=== PATIENT | male | born 1960 | race African-American/Black ===

== ENCOUNTER 2017-10-03 11:49 | Inpatient (IN) | payer OTHER ==
[2017-10-03 12:44] VITALS: BMI 23.0
[2017-10-03] MEDS ORDERED: MAG HYDROX/AL HYDROX/SIMETH 30 ML UNIT-DOSE CUP PO PRN (14:59)
[2017-10-03] MEDS ORDERED: P-EPHED 60MG/TRIPROLIDI 2.5MG TABLET PO PRN (14:59)
[2017-10-03] MEDS ORDERED: MAGNESIUM HYDROX 2400MG/30ML ORAL SUSPENSION 30 ML CUP PO PRN (14:59)
[2017-10-03] MEDS ORDERED: NICOTINE POLACRILEX 2 MG GUM BUC PRN (14:59)
[2017-10-03] MEDS ORDERED: MENTHOL/PHENOL 1 EACH UD MM PRN (14:59)
[2017-10-03] MEDS ORDERED: MAGNESIUM CITRATE 300 ML BOTTLE PO PRN (14:59)
[2017-10-03] MEDS ORDERED: IBUPROFEN 400 MG TABLET (FP) PO PRN (14:59)
[2017-10-03] MEDS ORDERED: guaiFENesin/D-METHORPHAN HB 10 ML UNIT-DOSE CUPS PO PRN (14:59)
[2017-10-03] MEDS ORDERED: LOPERAMIDE HCL 2 MG CAPSULE PO PRN (14:59)
[2017-10-03] MEDS ORDERED: ACETAMINOPHEN 325 MG TABLET (FP) PO PRN (14:59)
--- NOTE | 2017-10-03 14:59 | HP ---
COWS - Scale Resting Pulse: 1= [place] 81-100 Sweatin= Beads of Sweat on Face Restless Observation: 1= Difficult to Sit Still Pupil Size: 2= Moderately Dilated Bone or Joint Aches: 2= Severe Diffuse Aches Runny Nose/ Eye Tearin= Nasal Congestion GI Upset > 30mins: 0= None Tremor Observation: 2= Slight Tremor Visible Yawning Observation: 0= None Anxiety or Irritability: 2=Irritable/Anxious Goose Flesh Skin: 0=Smooth Skin COWS Score: 14 Admission ROS S - HPI Chief Complaint: tired of getting high Allergies/Adverse Reactions: Allergies Allergy/AdvReac Type Severity Reaction Status Date / Time No Known Allergies Allergy Verified 10/03/17 12:46 - Ebola screening Have you traveled outside of the country in the last 21 days: No Have you had contact with anyone from an Ebola affected area: No Have you been sick,other than usual withdrawal symptoms: No - Review of Systems Constitutional: Malaise EENT: reports: Nose Congestion Respiratory: reports: No Symptoms reported Cardiac: reports: No Symptoms Reported GI: reports: No Symptoms Reported : reports: No Symptoms Reported Musculoskeletal: reports: Back Pain, Joint Pain Integumentary: reports: No Symptoms Reported Neuro: reports: Headache Endocrine: reports: No Symptoms Reported Hematology: reports: No Symptoms Reported Psychiatric: reports: Anxious Patient History - Patient Medical History Hx Anemia: No Hx Asthma: No Hx Chronic Obstructive Pulmonary Disease (COPD): No Hx Cancer: No Hx Cardiac Disorders: No Hx Congestive Heart Failure: No Hx Hypertension: Yes (non compliant with meds.) Hx Hypercholesterolemia: No Hx Pacemaker: No HX Cerebrovascular Accident: No Hx Seizures: No Hx Dementia: No Hx Diabetes: No Hx Gastrointestinal Disorders: No Hx Liver Disease: No Hx Genitourinary Disorders: No Hx Sexually Transmitted Disorders: No Hx Renal Disease (ESRD): No Hx Thyroid Disease: No Hx Human Immunodeficiency Virus (HIV): No (last test 1 y ago) Hx Hepatitis C: No Hx Depression: No Hx Suicide Attempt: No Hx Bipolar Disorder: No Hx Schizophrenia: No - Patient Surgical History Past Surgical History: No - PPD History Documented Results: Positive w/o proof Implanted On Prior [facility] Admission?: No - Smoking Cessation Smoking history: Current every day smoker Have you smoked in the past 12 months: Yes Aproximately how many cigarettes per day: 3 Hx Chewing Tobacco Use: No Initiated information on smoking cessation: Yes 'Breaking Loose' booklet given: 10/03/17 - Substances Abused Heroin Route: Inhalation Frequency: Daily Amount used: 4 bags Age of first use: 19 Date of Last Use: 10/02/17 Marijuana/Hashish Route: Smoking Frequency: Daily Amount used: 2-3 joints Age of first use: 18 Date of Last Use: 10/02/17 Family Disease History - Family Disease History Family History: Denies Admission Physical Exam [facility] - Vital Signs Vital Signs: Vital Signs - 24 hr 10/03/17 12:35 Temperature 97.0 F L Pulse Rate 82 Respiratory 22 Rate Blood Pressure 178/115 - Physical General Appearance: Yes: Within Normal Limits HEENTM: Yes: EOMI Respiratory: Yes: Chest Non-Tender, Lungs Clear Neck: Yes: Within Normal Limits Cardiology: Yes: Within Normal Limits Abdominal: Yes: Within Normal Limits Genitourinary: Yes: Within Normal Limits Back: Yes: Within Normal Limits Musculoskeletal: Yes: full range of Motion, Gait Steady Extremities: Yes: Within Normal Limits Neurological: Yes: 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
[2017-10-03] MEDS ORDERED: METHADONE HCL 10 MG TABLET (FOR DETOX USE ONLY) PO ONE ×2 (15:31→23:00)
[2017-10-03] MEDS: diazePAM 5 MG TABLET PO PRN ×2 (17:03→22:20)
[2017-10-03] MEDS: NICOTINE 14 MG/24 HOURS TOPICAL PATCH TD SCH (17:03)
--- NOTE | 2017-10-03 17:16 | PN ---
[facility] Progress Note Note: received nurse call that the patient arrived the unit bp 185/100 recommend begin detox regimen as soon as possible
--- NOTE | 2017-10-03 20:03 | PN ---
[facility] Progress Note Note: received nurse call bp 153/102 one hour after detox regimen began continue detox regimen
--- NOTE | 2017-10-03 20:12 | PN ---
[facility] Progress Note Note: received nurse call patient has positive ppd needs chest x ray chest x ray as needed
[2017-10-03] MEDS: THIAMINE HCL 100 MG TABLET (FP) PO SCH (22:20)
[2017-10-03] MEDS: amLODIPine BESYLATE 10 MG TABLET (FP) PO SCH (22:20)
[2017-10-03] MEDS: HYDROCHLOROTHIAZIDE 25 MG TABLET (FP) PO SCH (22:20)
[2017-10-03] MEDS: LISINOPRIL 20 MG TABLET (FP) PO SCH (22:20)
[2017-10-04 02:47] LABS: URINE APPEARANCE CLEAR; URINE BILIRUBIN NEGATIVE (NEGATIVE); URINE BLOOD NEGATIVE (NEGATIVE); URINE COLOR LTYELLOW; URINE GLUCOSE (UA) NEGATIVE (NEGATIVE); URINE KETONE NEGATIVE (NEGATIVE); URINE LEUK ESTERASE NEGATIVE (NEGATIVE); URINE NITRITE NEGATIVE (NEGATIVE); URINE UROBILINOGEN NEGATIVE mg/dL (0.2-1.0)
[2017-10-04 02:54] LABS: URINE PROTEIN 1+ (NEGATIVE)
[2017-10-04 03:03] LABS: URINE RBC 1 /hpf (0-3); URINE WBC <1 /hpf (3-5)
[2017-10-04] MEDS ORDERED: cloNIDine HCL 0.1 MG TABLET PO ONE (06:01)
[2017-10-04] MEDS: diazePAM 5 MG TABLET PO PRN (06:07)
--- NOTE | 2017-10-04 09:20 | EKG ---
Test Reason : Blood Pressure : / mmHG Vent. Rate : 073 BPM Atrial Rate : 073 BPM P-R Int : 164 ms QRS Dur : 082 ms QT Int : 410 ms P-R-T Axes : 076 018 061 degrees QTc Int : 451 ms NORMAL SINUS RHYTHM POSSIBLE LEFT ATRIAL ENLARGEMENT LEFT VENTRICULAR HYPERTROPHY ABNORMAL ECG NO PREVIOUS ECGS AVAILABLE Confirmed by MYRIAM LEÓN MD ([id number]) on 10/04/2017 9:20:25 AM Referred By: Confirmed By:MYRIAM LEÓN MD
[2017-10-04] MEDS ORDERED: METHADONE HCL 10 MG TABLET (FOR DETOX USE ONLY) PO ONE (10:00)
[2017-10-04 10:09] LABS: MCH 29.1 pg (25.7-33.7); MCHC 32.6 g/dl (32.0-35.9); MEAN CELL VOLUME 89.2 fl (80-96); MEAN PLT VOLUME 9.8 fl (7.5-11.1); PLATELET COUNT 172 K/MM3 (134-434); RDW 14.9 % (11.9-15.9)
[2017-10-04 10:18] LABS: URINE LEUK ESTERASE Negative (NEGATIVE)
[2017-10-04 10:23] LABS: ALBUMIN 4.1 g/dl (3.4-5.0); ANION GAP 12 (8-16); BILIRUBIN,TOTAL 1.2 mg/dL (0.2-1.0); CALCIUM 9.3 mg/dL (8.5-10.1); CO2 24 mmol/L (21-32); CREATININE 1.2 mg/dL (0.7-1.3); GLUCOSE,RANDOM 126 mg/dL (74-106); SGPT/ALT 18 U/L (12-78); TOT PROT 8.7 g/dl (6.4-8.2)
[2017-10-04 10:24] LABS: ALK PHOS 92 U/L (45-117)
[2017-10-04 10:30] LABS: SGOT/AST 23 U/L (15-37)
[2017-10-04] MEDS: NICOTINE 14 MG/24 HOURS TOPICAL PATCH TD SCH (10:48)
[2017-10-04] MEDS: PRENATAL VITAMINS W/ FOLIC ACID TABLET (FP) PO SCH (10:48)
[2017-10-04] MEDS: LISINOPRIL 20 MG TABLET (FP) PO SCH (10:48)
[2017-10-04] MEDS: amLODIPine BESYLATE 10 MG TABLET (FP) PO SCH (10:48)
[2017-10-04] MEDS: HYDROCHLOROTHIAZIDE 25 MG TABLET (FP) PO SCH (10:48)
--- NOTE | 2017-10-04 11:04 | CONSULT ---
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 Substance Abuse History: Discussed in this session.Confirmed by patient.See details in current [facility] report : Smoking history: Current every day smoker. Have you smoked in the past 12 months: Yes. Aproximately how many cigarettes per day: 3. Hx Chewing Tobacco Use: No. Initiated information on smoking cessation: Yes. 'Breaking Loose' booklet given: 10/03/17. - Substances Abused. Heroin. Route: Inhalation. Frequency: Daily. Amount used: 4 bags. Age of first use: 19. Date of Last Use: 10/02/17. Marijuana/ Hashish. Route: Smoking. Frequency: Daily. Amount used: 2-3 joints. Age of first use: 18. Date of Last Use: 10/02/17 Medical History: Hypertension. Psychiatric History: Patient denies. Physical/Sexual Abuse/Trauma History: Patient denies. Additional Comment: Urine Drug Screen Results: THC-Marijuana, OPI-Opiates, TCA- Tricyclic Antidepressant, OXY-Oxycodone.Noted. Mental Status Exam - Mental Status Exam Alert and Oriented to: Time, Place, Person Cognitive Function: Good Patient Appearance: Well Groomed Mood: Hopeful, Euthymic Affect: Appropriate, Normal Range Patient Behavior: Fatigued, Cooperative Speech Pattern: Clear, Appropriate Voice Loudness: Normal Thought Process: Intact, Goal Oriented Thought Disorder: Not Present Hallucinations: Denies Suicidal Ideation: Denies Homicidal Ideation: Denies Insight/Judgement: Fair Sleep: Poorly, Difficulty falling asleep Appetite: Good Muscle strength/Tone: Normal Gait/Station: Normal Psychiatric Findings - Problem List ([place] 1, 2,3) (1) Heroin dependence Current Visit: Yes Status: Acute (2) Marihuana dependence Current Visit: Yes Status: Acute (3) Nicotine dependence Current Visit: Yes Status: Acute (4) Insomnia Current Visit: Yes Status: Acute - Initial Treatment Plan Initial Treatment Plan: Psychoeducation.Sleep hygiene.Detoxification.Ambien 10 mg po hs prn.Patient is made aware of risk of parasomnias.He agrees with this careplan.Observation.
--- NOTE | 2017-10-04 11:24 | PN ---
[facility] COWS - Scale Resting Pulse: 2= [place] 101-120 Sweatin= Chills/Flushing Restless Observation: 3= Extraneous Movement Pupil Size: 0= Normal to Room Light Bone or Joint Aches: 4=Acute Joint/Muscle Pain Runny Nose/ Eye Tearin= Nasal Congestion GI Upset > 30mins: 1= Stomach Cramp Tremor Observation of Outstretched Hands: 1= Tremor [place], Not Seen Yawning Observation: 1= 1-2x During Session Anxiety or Irritability: 2=Irritable/Anxious Goose Flesh Skin: 0=Smooth Skin COWS Score: 16 S Progress Note (SOAP) Subjective: PT C/O "TERRIBLE". ANXIETY,SWEATS,IRRITABILITY,BODY ACHES, INTERMITTENT SLEEP. Objective: 10/04/17 11:24 Vital Signs Temperature 97.5 F L 10/04/17 10:35 Pulse Rate 114 H 10/04/17 10:35 Respiratory Rate 18 10/04/17 10:35 Blood Pressure 136/86 10/04/17 10:35 O2 Sat by Pulse Oximetry (%) Laboratory Last Values WBC 6.0 K/mm3 (4.0-10.0) 10/04/17 06:00 RBC 5.69 M/mm3 (4.00-5.60) H 10/04/17 06:00 Hgb 16.5 GM/dL (11.7-16.9) 10/04/17 06:00 Hct 50.7 % (35.4-49) H 10/04/17 06:00 MCV 89.2 fl (80-96) 10/04/17 06:00 MCH 29.1 pg (25.7-33.7) 10/04/17 06:00 MCHC 32.6 g/dl (32.0-35.9) 10/04/17 06:00 RDW 14.9 % (11.9-15.9) 10/04/17 06:00 Plt Count 172 K/MM3 (134-434) 10/04/17 06:00 MPV 9.8 fl (7.5-11.1) 10/04/17 06:00 Sodium 138 mmol/L (136-145) 10/04/17 06:00 Potassium 4.4 mmol/L (3.5-5.1) 10/04/17 06:00 Chloride 102 mmol/L (98-107) 10/04/17 06:00 Carbon Dioxide 24 mmol/L (21-32) 10/04/17 06:00 Anion Gap 12 (8-16) 10/04/17 06:00 BUN 14 mg/dL (7-18) 10/04/17 06:00 Creatinine 1.2 mg/dL (0.7-1.3) 10/04/17 06:00 Creat Clearance w eGFR > 60 (>60) 10/04/17 06:00 Random Glucose 126 mg/dL (74-106) H 10/04/17 06:00 Calcium 9.3 mg/dL (8.5-10.1) 10/04/17 06:00 Total Bilirubin 1.2 mg/dL (0.2-1.0) H 10/04/17 06:00 AST 23 U/L (15-37) 10/04/17 06:00 ALT 18 U/L (12-78) 10/04/17 06:00 Alkaline Phosphatase 92 U/L (45-117) 10/04/17 06:00 Total Protein 8.7 g/dl (6.4-8.2) H 10/04/17 06:00 Albumin 4.1 g/dl (3.4-5.0) 10/04/17 06:00 Urine Color Ltyellow 10/03/17 23:15 Urine Appearance Clear 10/03/17 23:15 Urine pH 6.0 (5.0-8.0) 10/03/17 23:15 Ur Specific [place] 1.003 (1.001-1.035) 10/03/17 23:15 Urine Protein 1+ (NEGATIVE) H 10/03/17 23:15 Urine Glucose (UA) Negative (NEGATIVE) 10/03/17 23:15 Urine Ketones Negative (NEGATIVE) 10/03/17 23:15 Urine Blood Negative (NEGATIVE) 10/03/17 23:15 Urine Nitrite Negative (NEGATIVE) 10/03/17 23:15 Urine Bilirubin Negative (NEGATIVE) 10/03/17 23:15 Urine Urobilinogen Negative mg/dL (0.2-1.0) 10/03/17 23:15 Ur Leukocyte Esterase Negative (NEGATIVE) 10/03/17 23:15 Urine WBC (Auto) <1 /hpf (3-5) 10/03/17 23:15 Urine RBC (Auto) 1 /hpf (0-3) 10/03/17 23:15 RPR Titer Nonreactive (NONREACTIVE) 10/04/17 06:00 Assessment: 10/04/17 11:24 WITHDRAWAL SX Plan: CONTINUE DETOX
[2017-10-04] MEDS: ZOLPIDEM TARTRATE 10 MG TABLET (PARK CARE ONLY) PO PRN (22:48)
[2017-10-04] MEDS: THIAMINE HCL 100 MG TABLET (FP) PO SCH (22:48)
[2017-10-05] MEDS: diazePAM 5 MG TABLET PO PRN ×3 (05:22→22:12)
[2017-10-05] MEDS ORDERED: METHADONE HCL 5 MG TABLET (FOR DETOX USE ONLY) PO ONE (10:00)
[2017-10-05] MEDS: LISINOPRIL 20 MG TABLET (FP) PO SCH (10:03)
[2017-10-05] MEDS: amLODIPine BESYLATE 10 MG TABLET (FP) PO SCH (10:03)
[2017-10-05] MEDS: NICOTINE 14 MG/24 HOURS TOPICAL PATCH TD SCH (10:03)
[2017-10-05] MEDS: HYDROCHLOROTHIAZIDE 25 MG TABLET (FP) PO SCH (10:03)
[2017-10-05] MEDS: PRENATAL VITAMINS W/ FOLIC ACID TABLET (FP) PO SCH (10:03)
[2017-10-05] MEDS: AMMONIUM LACTATE 12% LOTION 225 GM BOTTLE TP SCH (13:39)
[2017-10-05] MEDS ORDERED: cloNIDine HCL 0.1 MG TABLET PO ONE (15:08)
--- NOTE | 2017-10-05 15:08 | PN ---
[facility] COWS - Scale Resting Pulse: 1= [place] 81-100 Sweatin= Chills/Flushing Restless Observation: 1= Difficult to Sit Still Pupil Size: 0= Normal to Room Light Bone or Joint Aches: 2= Severe Diffuse Aches Runny Nose/ Eye Tearin= None GI Upset > 30mins: 2= Nausea/Diarrhea Tremor Observation of Outstretched Hands: 2= Slight Tremor Visible Yawning Observation: 1= 1-2x During Session Anxiety or Irritability: 2=Irritable/Anxious Goose Flesh Skin: 0=Smooth Skin COWS Score: 12 BHS Progress Note (SOAP) Subjective: Diarrhea, Tremors, Sweating, Chills, Stomach Cramping. Objective: PT. A & O X 3, OBSERVED AMBULATING ON UNIT. NO ACUTE DISTRESS. 10/05/17 15:06 Vital Signs Temperature 99.1 F 10/05/17 13:53 Pulse Rate 98 H 10/05/17 13:53 Respiratory Rate 18 10/05/17 13:53 Blood Pressure 137/92 10/05/17 13:53 O2 Sat by Pulse Oximetry (%) Laboratory Tests 10/03/17 10/04/17 10/04/17 23:15 06:00 06:00 WBC 6.0 RBC 5.69 H Hgb 16.5 Hct 50.7 H MCV 89.2 MCH 29.1 MCHC 32.6 RDW 14.9 Plt Count 172 MPV 9.8 Sodium 138 Potassium 4.4 Chloride 102 Carbon Dioxide 24 Anion Gap 12 BUN 14 Creatinine 1.2 Creat Clearance w eGFR > 60 Random Glucose 126 H Calcium 9.3 Total Bilirubin 1.2 H AST 23 ALT 18 Alkaline Phosphatase 92 Total Protein 8.7 H Albumin 4.1 Urine Color Ltyellow Urine Appearance Clear Urine pH 6.0 Ur Specific [place] 1.003 Urine Protein 1+ H Urine Glucose (UA) Negative Urine Ketones Negative Urine Blood Negative Urine Nitrite Negative Urine Bilirubin Negative Urine Urobilinogen Negative Ur Leukocyte Esterase Negative Urine WBC (Auto) <1 Urine RBC (Auto) 1 RPR Titer 10/04/17 06:00 WBC RBC Hgb Hct MCV MCH MCHC RDW Plt Count MPV Sodium Potassium Chloride Carbon Dioxide Anion Gap BUN Creatinine Creat Clearance w eGFR Random Glucose Calcium Total Bilirubin AST ALT Alkaline Phosphatase Total Protein Albumin Urine Color Urine Appearance Urine pH Ur Specific [place] Urine Protein Urine Glucose (UA) Urine Ketones Urine Blood Urine Nitrite Urine Bilirubin Urine Urobilinogen Ur Leukocyte Esterase Urine WBC (Auto) Urine RBC (Auto) RPR Titer Nonreactive LABS NOTED. Assessment: 10/05/17 15:06 WITHDRAWAL SYMPTOMS. Plan: CONTINUE DETOX. CLONIDINE, 0.1 MG PO X 1 FOR DETOX SYMPTOMS AND FOR ELEVATED BP. PRN FLEXERIL FOR BODY ACHES / MUSCLE SPASMS. INCREASE DAILY PO FLUID INTAKE.
[2017-10-05] MEDS: CYCLOBENZAPRINE HCL 10 MG TABLET (FP) PO PRN (22:12)
[2017-10-05] MEDS: ZOLPIDEM TARTRATE 10 MG TABLET (PARK CARE ONLY) PO PRN (22:12)
[2017-10-05] MEDS: THIAMINE HCL 100 MG TABLET (FP) PO SCH (22:12)
[2017-10-06] MEDS ORDERED: METHADONE HCL 5 MG TABLET (FOR DETOX USE ONLY) PO ONE (10:00)
[2017-10-06] MEDS: amLODIPine BESYLATE 10 MG TABLET (FP) PO SCH (10:07)
[2017-10-06] MEDS: PRENATAL VITAMINS W/ FOLIC ACID TABLET (FP) PO SCH (10:07)
[2017-10-06] MEDS: HYDROCHLOROTHIAZIDE 25 MG TABLET (FP) PO SCH (10:07)
[2017-10-06] MEDS: LISINOPRIL 20 MG TABLET (FP) PO SCH (10:07)
[2017-10-06] MEDS: AMMONIUM LACTATE 12% LOTION 225 GM BOTTLE TP SCH (10:08)
[2017-10-06] MEDS: NICOTINE 14 MG/24 HOURS TOPICAL PATCH TD SCH (10:08)
--- NOTE | 2017-10-06 13:05 | PN ---
[facility]HS Progress Note (SOAP) Subjective: Chills, sweating, interrupted sleep Objective: 10/06/17 12:58 Last Vital Signs Temp Pulse Resp BP Pulse Ox 97.3 F L 91 H 18 125/84 10/06/17 09:26 10/06/17 09:26 10/06/17 09:26 10/06/17 09:26 Laboratory Tests 10/03/17 10/04/17 10/04/17 23:15 06:00 06:00 WBC 6.0 RBC 5.69 H Hgb 16.5 Hct 50.7 H MCV 89.2 MCH 29.1 MCHC 32.6 RDW 14.9 Plt Count 172 MPV 9.8 Sodium 138 Potassium 4.4 Chloride 102 Carbon Dioxide 24 Anion Gap 12 BUN 14 Creatinine 1.2 Creat Clearance w eGFR > 60 Random Glucose 126 H Calcium 9.3 Total Bilirubin 1.2 H AST 23 ALT 18 Alkaline Phosphatase 92 Total Protein 8.7 H Albumin 4.1 Urine Color Ltyellow Urine Appearance Clear Urine pH 6.0 Ur Specific [place] 1.003 Urine Protein 1+ H Urine Glucose (UA) Negative Urine Ketones Negative Urine Blood Negative Urine Nitrite Negative Urine Bilirubin Negative Urine Urobilinogen Negative Ur Leukocyte Esterase Negative Urine WBC (Auto) <1 Urine RBC (Auto) 1 RPR Titer 10/04/17 06:00 WBC RBC Hgb Hct MCV MCH MCHC RDW Plt Count MPV Sodium Potassium Chloride Carbon Dioxide Anion Gap BUN Creatinine Creat Clearance w eGFR Random Glucose Calcium Total Bilirubin AST ALT Alkaline Phosphatase Total Protein Albumin Urine Color Urine Appearance Urine pH Ur Specific [place] Urine Protein Urine Glucose (UA) Urine Ketones Urine Blood Urine Nitrite Urine Bilirubin Urine Urobilinogen Ur Leukocyte Esterase Urine WBC (Auto) Urine RBC (Auto) RPR Titer Nonreactive Labs noted: serum glucose 126; UA: 1+ protein Assessment: 10/06/17 12:59 Withdrawal symptoms Noted with hyperglycemia and proteinuria Plan: Continue detox Hyperglycemia: rule out dm by repeating fasting glucose, send HbA1c, finger stick glucose ac meal, insulin sliding scale with coverage, change ensure to glucerna, start oral antidiabetic medication if warranted Proteinuria: encouraged to drink lots of water, repeat UA
[2017-10-06] MEDS: CYCLOBENZAPRINE HCL 10 MG TABLET (FP) PO PRN ×2 (13:25→22:09)
[2017-10-06 16:06] LABS: URINE APPEARANCE CLEAR; URINE BILIRUBIN NEGATIVE (NEGATIVE); URINE BLOOD NEGATIVE (NEGATIVE); URINE COLOR LTYELLOW; URINE GLUCOSE (UA) NEGATIVE (NEGATIVE); URINE KETONE NEGATIVE (NEGATIVE); URINE LEUK ESTERASE NEGATIVE (NEGATIVE); URINE NITRITE NEGATIVE (NEGATIVE); URINE PROTEIN NEGATIVE (NEGATIVE); URINE UROBILINOGEN NEGATIVE mg/dL (0.2-1.0)
[2017-10-06] MEDS: INSULIN SLIDING SCALE (NOVOLOG) 1 VIAL SQ SCH (16:53)
[2017-10-06 20:12] LABS: URINE LEUK ESTERASE Negative (NEGATIVE)
[2017-10-06] MEDS: ZOLPIDEM TARTRATE 10 MG TABLET (PARK CARE ONLY) PO PRN (22:08)
[2017-10-06] MEDS: THIAMINE HCL 100 MG TABLET (FP) PO SCH (22:08)
[2017-10-07] MEDS: CYCLOBENZAPRINE HCL 10 MG TABLET (FP) PO PRN ×2 (05:35→14:23)
[2017-10-07] MEDS: INSULIN SLIDING SCALE (NOVOLOG) 1 VIAL SQ SCH ×3 (06:19→16:28)
[2017-10-07] MEDS ORDERED: METHADONE HCL 10 MG TABLET (FOR DETOX USE ONLY) PO ONE (10:00)
[2017-10-07] MEDS: LISINOPRIL 20 MG TABLET (FP) PO SCH (10:11)
[2017-10-07] MEDS: HYDROCHLOROTHIAZIDE 25 MG TABLET (FP) PO SCH (10:11)
[2017-10-07] MEDS: PRENATAL VITAMINS W/ FOLIC ACID TABLET (FP) PO SCH (10:11)
[2017-10-07] MEDS: NICOTINE 14 MG/24 HOURS TOPICAL PATCH TD SCH (10:12)
[2017-10-07] MEDS: AMMONIUM LACTATE 12% LOTION 225 GM BOTTLE TP SCH (10:12)
[2017-10-07] MEDS: amLODIPine BESYLATE 10 MG TABLET (FP) PO SCH (10:12)
--- NOTE | 2017-10-07 11:40 | PN ---
[facility] Progress Note (SOAP) Subjective: ANXIETY,SWEATS,CHILLS,CHRONIC LOWER BACK PAIN. Objective: 10/07/17 11:39 Vital Signs Temperature 97.2 F L 10/07/17 09:17 Pulse Rate 94 H 10/07/17 09:17 Respiratory Rate 18 10/07/17 09:17 Blood Pressure 134/92 10/07/17 09:17 O2 Sat by Pulse Oximetry (%) Laboratory Last Values WBC 6.0 K/mm3 (4.0-10.0) 10/04/17 06:00 RBC 5.69 M/mm3 (4.00-5.60) H 10/04/17 06:00 Hgb 16.5 GM/dL (11.7-16.9) 10/04/17 06:00 Hct 50.7 % (35.4-49) H 10/04/17 06:00 MCV 89.2 fl (80-96) 10/04/17 06:00 MCH 29.1 pg (25.7-33.7) 10/04/17 06:00 MCHC 32.6 g/dl (32.0-35.9) 10/04/17 06:00 RDW 14.9 % (11.9-15.9) 10/04/17 06:00 Plt Count 172 K/MM3 (134-434) 10/04/17 06:00 MPV 9.8 fl (7.5-11.1) 10/04/17 06:00 Sodium 138 mmol/L (136-145) 10/04/17 06:00 Potassium 4.4 mmol/L (3.5-5.1) 10/04/17 06:00 Chloride 102 mmol/L (98-107) 10/04/17 06:00 Carbon Dioxide 24 mmol/L (21-32) 10/04/17 06:00 Anion Gap 12 (8-16) 10/04/17 06:00 BUN 14 mg/dL (7-18) 10/04/17 06:00 Creatinine 1.2 mg/dL (0.7-1.3) 10/04/17 06:00 Creat Clearance w eGFR > 60 (>60) 10/04/17 06:00 POC Glucometer 81 UNITS (80-120) 10/07/17 05:34 Random Glucose 126 mg/dL (74-106) H 10/04/17 06:00 Fasting Glucose 81 mg/dL (70-105) 10/07/17 07:00 Hemoglobin A1c % 5.7 % (4.8-6.0) 10/07/17 07:00 Calcium 9.3 mg/dL (8.5-10.1) 10/04/17 06:00 Total Bilirubin 1.2 mg/dL (0.2-1.0) H 10/04/17 06:00 AST 23 U/L (15-37) 10/04/17 06:00 ALT 18 U/L (12-78) 10/04/17 06:00 Alkaline Phosphatase 92 U/L (45-117) 10/04/17 06:00 Total Protein 8.7 g/dl (6.4-8.2) H 10/04/17 06:00 Albumin 4.1 g/dl (3.4-5.0) 10/04/17 06:00 Urine Color Ltyellow 10/06/17 13:30 Urine Appearance Clear 10/06/17 13:30 Urine pH 6.0 (5.0-8.0) 10/06/17 13:30 Ur Specific [place] 1.006 (1.001-1.035) 10/06/17 13:30 Urine Protein Negative (NEGATIVE) 10/06/17 13:30 Urine Glucose (UA) Negative (NEGATIVE) 10/06/17 13:30 Urine Ketones Negative (NEGATIVE) 10/06/17 13:30 Urine Blood Negative (NEGATIVE) 10/06/17 13:30 Urine Nitrite Negative (NEGATIVE) 10/06/17 13:30 Urine Bilirubin Negative (NEGATIVE) 10/06/17 13:30 Urine Urobilinogen Negative mg/dL (0.2-1.0) 10/06/17 13:30 Ur Leukocyte Esterase Negative (NEGATIVE) 10/06/17 13:30 Urine WBC (Auto) <1 /hpf (3-5) 10/03/17 23:15 Urine RBC (Auto) 1 /hpf (0-3) 10/03/17 23:15 RPR Titer Nonreactive (NONREACTIVE) 10/04/17 06:00 Assessment: 10/07/17 11:40 WITHDRAWAL SX Plan: CONTINUE DETOX
[2017-10-07] MEDS: THIAMINE HCL 100 MG TABLET (FP) PO SCH (22:30)
[2017-10-08] MEDS ORDERED: METHADONE HCL 5 MG TABLET (FOR DETOX USE ONLY) PO ONE (06:00)
[2017-10-08] MEDS: INSULIN SLIDING SCALE (NOVOLOG) 1 VIAL SQ SCH (06:31)
[2017-10-08 09:04] VITALS: BP 135/91; PULSE 101; TEMP 98.5
--- NOTE | 2017-10-08 10:06 | DS ---
[facility] Detox Discharge Summary Admission Date: 10/03/17 Discharge Date: 10/08/17 - History Present History: Opioid Dependence Additional Comments: DETOX COMPLETED.ALERT O X 3. NAD. PT REPORTS HE IS GOING BACK TO [facility] WHERE HE CAME FROM AND RECIEVES MEDICAL AND OTHER SERVICES. - Physical Exam Results Vital Signs: Vital Signs Temperature 98.5 F 10/08/17 09:03 Pulse Rate 101 H 10/08/17 09:03 Respiratory Rate 20 10/08/17 09:03 Blood Pressure 135/91 10/08/17 09:03 O2 Sat by Pulse Oximetry (%) Pertinent Admission Physical Exam Findings: WITHDRAWAL SX Laboratory Last Values WBC 6.0 K/mm3 (4.0-10.0) 10/04/17 06:00 RBC 5.69 M/mm3 (4.00-5.60) H 10/04/17 06:00 Hgb 16.5 GM/dL (11.7-16.9) 10/04/17 06:00 Hct 50.7 % (35.4-49) H 10/04/17 06:00 MCV 89.2 fl (80-96) 10/04/17 06:00 MCH 29.1 pg (25.7-33.7) 10/04/17 06:00 MCHC 32.6 g/dl (32.0-35.9) 10/04/17 06:00 RDW 14.9 % (11.9-15.9) 10/04/17 06:00 Plt Count 172 K/MM3 (134-434) 10/04/17 06:00 MPV 9.8 fl (7.5-11.1) 10/04/17 06:00 Sodium 138 mmol/L (136-145) 10/04/17 06:00 Potassium 4.4 mmol/L (3.5-5.1) 10/04/17 06:00 Chloride 102 mmol/L (98-107) 10/04/17 06:00 Carbon Dioxide 24 mmol/L (21-32) 10/04/17 06:00 Anion Gap 12 (8-16) 10/04/17 06:00 BUN 14 mg/dL (7-18) 10/04/17 06:00 Creatinine 1.2 mg/dL (0.7-1.3) 10/04/17 06:00 Creat Clearance w eGFR > 60 (>60) 10/04/17 06:00 POC Glucometer 101 UNITS (80-120) 10/07/17 16:20 Random Glucose 126 mg/dL (74-106) H 10/04/17 06:00 Fasting Glucose 81 mg/dL (70-105) 10/07/17 07:00 Hemoglobin A1c % 5.7 % (4.8-6.0) 10/07/17 07:00 Calcium 9.3 mg/dL (8.5-10.1) 10/04/17 06:00 Total Bilirubin 1.2 mg/dL (0.2-1.0) H 10/04/17 06:00 AST 23 U/L (15-37) 10/04/17 06:00 ALT 18 U/L (12-78) 10/04/17 06:00 Alkaline Phosphatase 92 U/L (45-117) 10/04/17 06:00 Total Protein 8.7 g/dl (6.4-8.2) H 10/04/17 06:00 Albumin 4.1 g/dl (3.4-5.0) 10/04/17 06:00 Urine Color Ltyellow 10/06/17 13:30 Urine Appearance Clear 10/06/17 13:30 Urine pH 6.0 (5.0-8.0) 10/06/17 13:30 Ur Specific [place] 1.006 (1.001-1.035) 10/06/17 13:30 Urine Protein Negative (NEGATIVE) 10/06/17 13:30 Urine Glucose (UA) Negative (NEGATIVE) 10/06/17 13:30 Urine Ketones Negative (NEGATIVE) 10/06/17 13:30 Urine Blood Negative (NEGATIVE) 10/06/17 13:30 Urine Nitrite Negative (NEGATIVE) 10/06/17 13:30 Urine Bilirubin Negative (NEGATIVE) 10/06/17 13:30 Urine Urobilinogen Negative mg/dL (0.2-1.0) 10/06/17 13:30 Ur Leukocyte Esterase Negative (NEGATIVE) 10/06/17 13:30 Urine WBC (Auto) <1 /hpf (3-5) 10/03/17 23:15 Urine RBC (Auto) 1 /hpf (0-3) 10/03/17 23:15 RPR Titer Nonreactive (NONREACTIVE) 10/04/17 06:00 - Treatment Hospital Course: Detox Protocol Followed, Detoxed Safely, Responded well, Discharged Condition Good - Medication Discharge Medications: Ambulatory Orders Amlodipine Besylate [Norvasc -] 10 mg PO DAILY 10/03/17 Hydrochlorothiazide [Hctz -] 25 mg PO DAILY 10/03/17 Lisinopril [Prinivil] 20 mg PO DAILY 10/03/17 - Diagnosis (1) Nicotine dependence Status: Acute Qualifiers: Nicotine product type: cigarettes Substance use status: in withdrawal Qualified Code(s): F17.213 - Nicotine dependence, cigarettes, with withdrawal (2) Opiate dependence Status: Acute Qualifiers: Substance use status: in withdrawal Qualified Code(s): F11.23 - Opioid dependence with withdrawal (3) Hypertension Status: Chronic Qualifiers: Hypertension type: essential hypertension Qualified Code(s): I10 - Essential (primary) hypertension (4) Chronic lower back pain Status: Chronic Qualifiers: Back pain laterality: unspecified - AMA Did Patient Leave Against Medical Advice: No
== END 2017-10-08 09:20 | disposition home or self-care (01) | DRG 773 ==
LOC: YASAS 11:49 → Y3N 14:42
PROVIDERS: ADMIT Internal Medicine; ATTEND Internal Medicine
PROC: HZ2ZZZZ Detoxification Services for Substance Abuse Treatment (ICD-10-PCS; principal; 2017-10-03)
DX: F11.23 Opioid dependence with withdrawal (principal); F12.20 Cannabis dependence, uncomplicated; F17.213 Nicotine dependence, cigarettes, with withdrawal; I10 Essential (primary) hypertension; M54.5 Low back pain; G89.29 Other chronic pain; G47.00 Insomnia, unspecified; R73.9 Hyperglycemia, unspecified; R80.9 Proteinuria, unspecified; R76.11 Nonspecific reaction to tuberculin skin test without active tuberculosis; Z91.14 Patient's other noncompliance with medication regimen
CPT/HCPCS: 36415; 71020-TC; 80053; 81003; 81015; 82947; 83036; 85027; 86593; 93005; 93010

== ENCOUNTER 2017-10-29 13:11 | Inpatient (IN) | payer OTHER ==
[2017-10-29 14:21] VITALS: BMI 24.4
[2017-10-29] MEDS ORDERED: NICOTINE POLACRILEX 2 MG GUM BC PRN (16:07)
[2017-10-29] MEDS ORDERED: hydrOXYzine PAMOATE 50 MG CAPSULE (FP) PO PRN (16:07)
[2017-10-29] MEDS ORDERED: MAGNESIUM CITRATE 300 ML BOTTLE PO PRN (16:07)
[2017-10-29] MEDS ORDERED: MAGNESIUM HYDROX 2400MG/30ML ORAL SUSPENSION 30 ML CUP PO PRN (16:07)
[2017-10-29] MEDS ORDERED: MENTHOL/PHENOL 1 EACH UD MM PRN (16:07)
[2017-10-29] MEDS ORDERED: LOPERAMIDE HCL 2 MG CAPSULE PO PRN (16:07)
[2017-10-29] MEDS ORDERED: MAG HYDROX/AL HYDROX/SIMETH 30 ML UNIT-DOSE CUP PO PRN (16:07)
[2017-10-29] MEDS ORDERED: ACETAMINOPHEN 325 MG TABLET (FP) PO PRN (16:07)
[2017-10-29] MEDS ORDERED: P-EPHED 60MG/TRIPROLIDI 2.5MG TABLET PO PRN (16:07)
[2017-10-29] MEDS ORDERED: guaiFENesin/D-METHORPHAN HB 10 ML UNIT-DOSE CUPS PO PRN (16:07)
--- NOTE | 2017-10-29 16:07 | HP ---
COWS - Scale Resting Pulse: 1= [place] 81-100 Sweatin=Flushed/Facial Moisture Restless Observation: 1= Difficult to Sit Still Pupil Size: 0= Normal to Room Light Bone or Joint Aches: 2= Severe Diffuse Aches Runny Nose/ Eye Tearin= Runny Nose/Eyes GI Upset > 30mins: 2= Nausea/Diarrhea Tremor Observation: 2= Slight Tremor Visible Yawning Observation: 2= >3x During Session Anxiety or Irritability: 2=Irritable/Anxious Goose Flesh Skin: 3=Piloerection COWS Score: 19 Admission ROS S - [facility] Chief Complaint: I am here to detox. Allergies/Adverse Reactions: Allergies Allergy/AdvReac Type Severity Reaction Status Date / Time No Known Allergies Allergy Verified 10/03/17 12:46 History of Present Illness: pt is a 57yr old male with a history of heroin dependence seeking detox for treatment. Exam Limitations: No Limitations - Ebola screening Have you traveled outside of the country in the last 21 days: No Have you had contact with anyone from an Ebola affected area: No Have you been sick,other than usual withdrawal symptoms: No Do you have a fever: No - Review of Systems Constitutional: Chills, Diaphoresis, Night Sweats, Changes in sleep, Unintentional Wgt. Loss EENT: reports: No Symptoms Reported Respiratory: reports: No Symptoms reported Cardiac: reports: No Symptoms Reported GI: reports: Poor Appetite, Poor Fluid Intake : reports: No Symptoms Reported Musculoskeletal: reports: Back Pain Integumentary: reports: Flushing, Sweating Neuro: reports: Headache, Tingling, Tremors Endocrine: reports: Excessive Sweating, Flushing, Intolerance to Cold, Intolerance to Heat Hematology: reports: No Symptoms Reported Psychiatric: reports: No Sypmtoms Reported, Judgement Intact, Mood/Affect Appropiate, Orientated x3, Agitated, Anxious Other Systems: Reviewed and Negative Patient History - Patient Medical History Hx Anemia: No Hx Asthma: No Hx Chronic Obstructive Pulmonary Disease (COPD): No Hx Cancer: No Hx Cardiac Disorders: No Hx Congestive Heart Failure: No Hx Hypertension: Yes Hx Hypercholesterolemia: No Hx Pacemaker: No HX Cerebrovascular Accident: No Hx Seizures: No Hx Dementia: No Hx Diabetes: No Hx Gastrointestinal Disorders: No Hx Liver Disease: No Hx Genitourinary Disorders: No Hx Sexually Transmitted Disorders: No Hx Renal Disease (ESRD): No Hx Thyroid Disease: No Hx Human Immunodeficiency Virus (HIV): No (negative) Hx Hepatitis C: Yes (received harvoni for tx; now undected) Hx Depression: No Hx Suicide Attempt: No (denies) Hx Bipolar Disorder: No Hx Schizophrenia: No - Patient Surgical History Past Surgical History: No Hx Neurologic Surgery: No Hx Cataract Extraction: No Hx Cardiac Surgery: No Hx Lung Surgery: No Hx Breast Surgery: No Hx Breast Biopsy: No Hx Abdominal Surgery: No Hx Appendectomy: No Hx Cholecystectomy: No Hx Genitourinary Surgery: No Hx Section: No Hx Orthopedic Surgery: No Hx Hysterectomy: No Anesthesia Reaction: No - PPD History Previous Implant?: Yes Documented Results: Positive w/proof Implanted On Prior [facility] Admission?: No Results: cxr 10/06 PPD to be Administered?: No - Reproductive History Patient is a Female of Child Bearing Age (11 -55 yrs old): No - Smoking Cessation Smoking history: Current every day smoker Have you smoked in the past 12 months: Yes Aproximately how many cigarettes per day: 3 Hx Chewing Tobacco Use: No Initiated information on smoking cessation: Yes 'Breaking Loose' booklet given: 10/29/17 - Substance & Tx. History Hx Substance Use: No Substance Use Type: Heroin Hx Substance Use Treatment: Yes (last detox 09/2017) - Substances Abused Heroin Route: Inhalation Frequency: Daily Amount used: 12 bags Age of first use: 24 Date of Last Use: 10/29/17 Family Disease History - Family Disease History Family History: Denies Admission Physical Exam BHS - Vital Signs Vital Signs: Vital Signs - 24 hr 10/29/17 14:15 Temperature 98.1 F Pulse Rate 83 Respiratory 18 Rate Blood Pressure 160/100 - Physical General Appearance: Yes: Appropriately Dressed, Tremorous, Irritable, Anxious HEENTM: Yes: Hearing grossly Normal, Normal Voice, Nasal Congestion, Rhinorrhea Respiratory: Yes: Lungs Clear, Normal Breath Sounds, No Respiratory Distress Neck: Yes: No masses,lesions,Nodules Breast: Yes: Within Normal Limits Cardiology: Yes: Regular Rhythm, Regular Rate, S1, S2 Abdominal: Yes: Normal Bowel Sounds, Non Tender Genitourinary: Yes: Within Normal Limits Back: Yes: Normal Inspection Musculoskeletal: Yes: full range of Motion, Gait Steady, Back pain Extremities: Yes: Normal Capillary Refill, Normal Inspection, Tremors Neurological: Yes: Fully Oriented, Alert, Normal Response Integumentary: Yes: Normal Color, Diaphoresis Lymphatic: Yes: Within Normal Limits - Diagnostic (1) Opioid dependence with withdrawal Current Visit: Yes Status: Chronic (2) Nicotine dependence Current Visit: Yes Status: Chronic Qualifiers: Nicotine product type: cigarettes Substance use status: uncomplicated Qualified Code(s): F17.210 - Nicotine dependence, cigarettes, uncomplicated (3) Hypertension Current Visit: Yes Status: Chronic Qualifiers: Hypertension type: essential hypertension (4) PPD positive Current Visit: Yes Status: Chronic Cleared for Admission [facility] - Detox or Rehab [facility] Level of Care: Medically Managed Detox Regimen/Protocol: Methadone [facility] Breath Alcohol Content Breath Alcohol Content: 0 Urine Drug Screen - Results Drug Screen Negative: No Urine Drug Screen Results: THC-Marijuana, FLORY-Cocaine, OPI-Opiates, BZO- Benzodiazepines
[2017-10-29] MEDS ORDERED: cloNIDine HCL 0.1 MG TABLET PO ONE (17:00)
[2017-10-29] MEDS ORDERED: METHADONE HCL 10 MG TABLET (FOR DETOX USE ONLY) PO ONE ×2 (17:00→23:00)
[2017-10-29] MEDS: diazePAM 5 MG TABLET PO PRN (17:09)
[2017-10-29] MEDS: THIAMINE HCL 100 MG TABLET (FP) PO SCH (22:09)
[2017-10-29] MEDS: CYCLOBENZAPRINE HCL 10 MG TABLET (FP) PO PRN (22:09)
[2017-10-29] MEDS: IBUPROFEN 400 MG TABLET (FP) PO PRN (22:09)
[2017-10-29] MEDS: LIDOCAINE PATCH REMOVAL MC SCH (22:11)
[2017-10-29 23:23] LABS: URINE APPEARANCE CLEAR; URINE BILIRUBIN NEGATIVE (NEGATIVE); URINE BLOOD NEGATIVE (NEGATIVE); URINE COLOR YELLOW; URINE GLUCOSE (UA) NEGATIVE (NEGATIVE); URINE KETONE NEGATIVE (NEGATIVE); URINE LEUK ESTERASE NEGATIVE (NEGATIVE); URINE NITRITE NEGATIVE (NEGATIVE); URINE UROBILINOGEN NEGATIVE mg/dL (0.2-1.0)
[2017-10-29 23:24] LABS: URINE PROTEIN 2+ (NEGATIVE)
[2017-10-29 23:29] LABS: URINE BACTERIA RARE /hpf (NONE SEEN); URINE MUCUS RARE
[2017-10-30] MEDS: diazePAM 5 MG TABLET PO PRN ×2 (05:46→22:14)
--- NOTE | 2017-10-30 09:30 | EKG ---
Test Reason : Blood Pressure : / mmHG Vent. Rate : 082 BPM Atrial Rate : 082 BPM P-R Int : 000 ms QRS Dur : 086 ms QT Int : 374 ms P-R-T Axes : 147 -05 028 degrees QTc Int : 436 ms UNUSUAL P AXIS, POSSIBLE ECTOPIC ATRIAL RHYTHM technically difficult study T WAVE ABNORMALITY, CONSIDER ANTEROLATERAL ISCHEMIA ABNORMAL ECG WHEN COMPARED WITH ECG OF 03-OCT-2017 17:50, ECTOPIC ATRIAL RHYTHM HAS REPLACED SINUS RHYTHM NON-SPECIFIC CHANGE IN ST SEGMENT IN LATERAL LEADS NONSPECIFIC T WAVE ABNORMALITY NOW EVIDENT IN INFERIOR LEADS T WAVE INVERSION NOW EVIDENT IN ANTEROLATERAL LEADS Confirmed by GABE DOBBINS, MARIELENA ([id number]) on 10/30/2017 9:30:11 AM Referred By: Confirmed By:MARIELENA BERNAL MD
[2017-10-30] MEDS ORDERED: METHADONE HCL 10 MG TABLET (FOR DETOX USE ONLY) PO ONE (10:00)
[2017-10-30] MEDS: HYDROCHLOROTHIAZIDE 25 MG TABLET (FP) PO SCH (10:07)
[2017-10-30] MEDS: PRENATAL VITAMINS W/ FOLIC ACID TABLET (FP) PO SCH (10:07)
[2017-10-30] MEDS: LISINOPRIL 20 MG TABLET (FP) PO SCH (10:07)
--- NOTE | 2017-10-30 10:07 | PN ---
BHS COWS - Scale Resting Pulse: 1= [place] 81-100 Sweatin=Flushed/Facial Moisture Restless Observation: 1= Difficult to Sit Still Pupil Size: 0= Normal to Room Light Bone or Joint Aches: 2= Severe Diffuse Aches Runny Nose/ Eye Tearin= Runny Nose/Eyes GI Upset > 30mins: 0= None Tremor Observation of Outstretched Hands: 2= Slight Tremor Visible Yawning Observation: 2= >3x During Session Anxiety or Irritability: 2=Irritable/Anxious Goose Flesh Skin: 0=Smooth Skin COWS Score: 14 BHS Progress Note (SOAP) Subjective: agitation anxiety sweats shakes body aches irritable Objective: 10/30/17 10:04 Vital Signs Temperature 97.9 F 10/30/17 06:31 Pulse Rate 86 10/30/17 06:31 Respiratory Rate 18 10/30/17 06:31 Blood Pressure 143/95 10/30/17 06:31 O2 Sat by Pulse Oximetry (%) Laboratory Tests 10/29/17 21:17 Urine Color Yellow Urine Appearance Clear Urine pH 6.0 Ur Specific [place] 1.014 Urine Protein 2+ H Urine Glucose (UA) Negative Urine Ketones Negative Urine Blood Negative Urine Nitrite Negative Urine Bilirubin Negative Urine Urobilinogen Negative Ur Leukocyte Esterase Negative Urine WBC (Auto) <1 Urine RBC (Auto) 3 Urine Bacteria Rare Urine Mucus Rare labs pending aaox3 ambulating no acute distress Assessment: 10/30/17 10:06 withdrawal sx Plan: continue detox increase fluids
[2017-10-30] MEDS: amLODIPine BESYLATE 5 MG TABLET (FP) PO SCH (10:08)
[2017-10-30] MEDS: NICOTINE 7 MG/24 HOURS TOPICAL PATCH TD SCH (10:08)
[2017-10-30] MEDS: LIDOCAINE 5% TOPICAL PATCH TP SCH (10:08)
[2017-10-30 10:23] LABS: HEMATOCRIT 48.1 % (35.4-49); HEMOGLOBIN 15.5 GM/dL (11.7-16.9); MCH 28.8 pg (25.7-33.7); MCHC 32.2 g/dl (32.0-35.9); MEAN CELL VOLUME 89.5 fl (80-96); MEAN PLT VOLUME 9.7 fl (7.5-11.1); PLATELET COUNT 204 K/MM3 (134-434); RBC 5.37 M/mm3 (4.00-5.60); RDW 14.9 % (11.9-15.9); WHITE BLOOD COUNT 5.3 K/mm3 (4.0-10.0)
[2017-10-30 10:26] LABS: ANION GAP 9 (8-16); BLOOD UREA NITROGEN 10 mg/dL (7-18); CALCIUM 9.6 mg/dL (8.5-10.1); CHLORIDE 101 mmol/L (98-107); CO2 28 mmol/L (21-32); GLUCOSE,RANDOM 117 mg/dL (74-106); POTASSIUM 4.5 mmol/L (3.5-5.1); SODIUM 138 mmol/L (136-145)
[2017-10-30 10:30] LABS: ALK PHOS 80 U/L (45-117); BILIRUBIN,TOTAL 1.1 mg/dL (0.2-1.0); CREATININE 1.1 mg/dL (0.7-1.3); SGOT/AST 23 U/L (15-37); SGPT/ALT 19 U/L (12-78); TOT PROT 8.1 g/dl (6.4-8.2)
[2017-10-30] MEDS: THIAMINE HCL 100 MG TABLET (FP) PO SCH (22:14)
[2017-10-30] MEDS: CYCLOBENZAPRINE HCL 10 MG TABLET (FP) PO PRN (22:14)
[2017-10-30] MEDS: LIDOCAINE PATCH REMOVAL MC SCH (23:02)
--- NOTE | 2017-10-31 09:13 | EKG ---
Test Reason : Blood Pressure : / mmHG Vent. Rate : 092 BPM Atrial Rate : 092 BPM P-R Int : 154 ms QRS Dur : 082 ms QT Int : 322 ms P-R-T Axes : 088 028 057 degrees QTc Int : 398 ms NORMAL SINUS RHYTHM NORMAL ECG WHEN COMPARED WITH ECG OF 29-OCT-2017 17:13, SINUS RHYTHM HAS REPLACED ECTOPIC ATRIAL RHYTHM T WAVE INVERSION NO LONGER EVIDENT IN ANTERIOR LEADS Confirmed by GABE DOBBINS, MARIELENA ([id number]) on 10/31/2017 9:12:24 AM Referred By: Confirmed By:MARIELENA BERNAL MD
[2017-10-31] MEDS: CYCLOBENZAPRINE HCL 10 MG TABLET (FP) PO PRN ×2 (09:52→22:29)
[2017-10-31] MEDS: IBUPROFEN 400 MG TABLET (FP) PO PRN (09:52)
--- NOTE | 2017-10-31 09:56 | PN ---
BHS COWS - Scale Resting Pulse: 1= [place] 81-100 Sweatin=Flushed/Facial Moisture Restless Observation: 1= Difficult to Sit Still Pupil Size: 0= Normal to Room Light Bone or Joint Aches: 2= Severe Diffuse Aches Runny Nose/ Eye Tearin= None GI Upset > 30mins: 1= Stomach Cramp Tremor Observation of Outstretched Hands: 2= Slight Tremor Visible Yawning Observation: 1= 1-2x During Session Anxiety or Irritability: 2=Irritable/Anxious Goose Flesh Skin: 0=Smooth Skin COWS Score: 12 BHS Progress Note (SOAP) Subjective: chronic back pain sweats irritable interrupted sleep anxiety Objective: 10/31/17 09:55 Vital Signs Temperature 97.3 F L 10/31/17 06:28 Pulse Rate 73 10/31/17 06:28 Respiratory Rate 18 10/31/17 06:28 Blood Pressure 148/90 10/31/17 06:28 O2 Sat by Pulse Oximetry (%) Laboratory Tests 10/29/17 10/30/17 10/30/17 21:17 06:00 06:00 WBC 5.3 RBC 5.37 Hgb 15.5 Hct 48.1 MCV 89.5 MCH 28.8 MCHC 32.2 RDW 14.9 Plt Count 204 MPV 9.7 Sodium 138 Potassium 4.5 Chloride 101 Carbon Dioxide 28 Anion Gap 9 BUN 10 D Creatinine 1.1 Creat Clearance w eGFR > 60 Random Glucose 117 H Calcium 9.6 Total Bilirubin 1.1 H AST 23 ALT 19 Alkaline Phosphatase 80 Total Protein 8.1 Albumin 4.0 Urine Color Yellow Urine Appearance Clear Urine pH 6.0 Ur Specific [place] 1.014 Urine Protein 2+ H Urine Glucose (UA) Negative Urine Ketones Negative Urine Blood Negative Urine Nitrite Negative Urine Bilirubin Negative Urine Urobilinogen Negative Ur Leukocyte Esterase Negative Urine WBC (Auto) <1 Urine RBC (Auto) 3 Urine Bacteria Rare Urine Mucus Rare RPR Titer 10/30/17 06:00 WBC RBC Hgb Hct MCV MCH MCHC RDW Plt Count MPV Sodium Potassium Chloride Carbon Dioxide Anion Gap BUN Creatinine Creat Clearance w eGFR Random Glucose Calcium Total Bilirubin AST ALT Alkaline Phosphatase Total Protein Albumin Urine Color Urine Appearance Urine pH Ur Specific [place] Urine Protein Urine Glucose (UA) Urine Ketones Urine Blood Urine Nitrite Urine Bilirubin Urine Urobilinogen Ur Leukocyte Esterase Urine WBC (Auto) Urine RBC (Auto) Urine Bacteria Urine Mucus RPR Titer Nonreactive aaox3 ambulating no acute distress Assessment: 10/31/17 09:55 withdrawal sx Plan: continue detox increase fluids request flexiril, motrin prn lidocaine patch ordered
[2017-10-31] MEDS ORDERED: METHADONE HCL 5 MG TABLET (FOR DETOX USE ONLY) PO ONE (10:00)
[2017-10-31] MEDS: amLODIPine BESYLATE 5 MG TABLET (FP) PO SCH (10:39)
[2017-10-31] MEDS: PRENATAL VITAMINS W/ FOLIC ACID TABLET (FP) PO SCH (10:39)
[2017-10-31] MEDS: LISINOPRIL 20 MG TABLET (FP) PO SCH (10:39)
[2017-10-31] MEDS: HYDROCHLOROTHIAZIDE 25 MG TABLET (FP) PO SCH (10:39)
[2017-10-31] MEDS: LIDOCAINE 5% TOPICAL PATCH TP SCH (10:40)
[2017-10-31] MEDS: NICOTINE 7 MG/24 HOURS TOPICAL PATCH TD SCH (10:40)
[2017-10-31] MEDS ORDERED: cloNIDine HCL 0.1 MG TABLET PO ONE (14:41)
[2017-10-31] MEDS: diazePAM 5 MG TABLET PO PRN ×2 (14:44→22:29)
[2017-10-31] MEDS: TOLNAFTATE 1% CREAM 15 GM TUBE TP SCH (22:28)
[2017-10-31] MEDS: THIAMINE HCL 100 MG TABLET (FP) PO SCH (22:29)
[2017-10-31] MEDS: cloNIDine HCL 0.1 MG TABLET PO SCH (22:29)
[2017-10-31] MEDS: LIDOCAINE PATCH REMOVAL MC SCH (23:18)
[2017-11-01] MEDS ORDERED: METHADONE HCL 5 MG TABLET (FOR DETOX USE ONLY) PO ONE (10:00)
[2017-11-01] MEDS: amLODIPine BESYLATE 5 MG TABLET (FP) PO SCH (10:38)
[2017-11-01] MEDS: LISINOPRIL 20 MG TABLET (FP) PO SCH (10:38)
[2017-11-01] MEDS: PRENATAL VITAMINS W/ FOLIC ACID TABLET (FP) PO SCH (10:38)
[2017-11-01] MEDS: HYDROCHLOROTHIAZIDE 25 MG TABLET (FP) PO SCH (10:38)
[2017-11-01] MEDS: cloNIDine HCL 0.1 MG TABLET PO SCH ×2 (10:38→22:09)
[2017-11-01] MEDS: LIDOCAINE 5% TOPICAL PATCH TP SCH (10:39)
[2017-11-01] MEDS: TOLNAFTATE 1% CREAM 15 GM TUBE TP SCH ×2 (10:39→22:09)
[2017-11-01] MEDS: NICOTINE 7 MG/24 HOURS TOPICAL PATCH TD SCH (11:12)
--- NOTE | 2017-11-01 12:52 | PN ---
BHS Progress Note (SOAP) Subjective: irritable agitation sweats callous on foot Objective: 11/01/17 12:50 Vital Signs Temperature 97.2 F L 11/01/17 10:40 Pulse Rate 88 11/01/17 10:40 Respiratory Rate 18 11/01/17 10:40 Blood Pressure 147/93 11/01/17 10:40 O2 Sat by Pulse Oximetry (%) aaox3 ambulating no acute distress Assessment: 11/01/17 12:51 withdrawal sx Plan: increase fluids continue detox tinactin cream and add gauze to callous. see gantry rigger after care
[2017-11-01] MEDS: IBUPROFEN 400 MG TABLET (FP) PO PRN (13:13)
[2017-11-01] MEDS: CYCLOBENZAPRINE HCL 10 MG TABLET (FP) PO PRN (22:09)
[2017-11-01] MEDS: THIAMINE HCL 100 MG TABLET (FP) PO SCH (22:09)
[2017-11-01] MEDS: LIDOCAINE PATCH REMOVAL MC SCH (23:13)
[2017-11-02] MEDS ORDERED: METHADONE HCL 10 MG TABLET (FOR DETOX USE ONLY) PO ONE (10:00)
[2017-11-02] MEDS: PRENATAL VITAMINS W/ FOLIC ACID TABLET (FP) PO SCH (10:34)
[2017-11-02] MEDS: LISINOPRIL 20 MG TABLET (FP) PO SCH (10:34)
[2017-11-02] MEDS: cloNIDine HCL 0.1 MG TABLET PO SCH ×2 (10:34→22:37)
[2017-11-02] MEDS: amLODIPine BESYLATE 5 MG TABLET (FP) PO SCH (10:34)
[2017-11-02] MEDS: TOLNAFTATE 1% CREAM 15 GM TUBE TP SCH ×2 (10:34→22:36)
[2017-11-02] MEDS: HYDROCHLOROTHIAZIDE 25 MG TABLET (FP) PO SCH (10:34)
[2017-11-02] MEDS: NICOTINE 7 MG/24 HOURS TOPICAL PATCH TD SCH (10:35)
[2017-11-02] MEDS: LIDOCAINE 5% TOPICAL PATCH TP SCH (13:03)
--- NOTE | 2017-11-02 13:14 | PN ---
BHS Progress Note (SOAP) Subjective: anxious agitation callus to sole Objective: 11/02/17 13:12 Vital Signs Temperature 98.4 F 11/02/17 10:38 Pulse Rate 78 11/02/17 10:38 Respiratory Rate 18 11/02/17 10:38 Blood Pressure 131/81 11/02/17 10:38 O2 Sat by Pulse Oximetry (%) VS stable Assessment: 11/02/17 13:13 withdrawal sx Plan: continue detox continue with the cream follow up with outpatient podiatory
[2017-11-02] MEDS: IBUPROFEN 400 MG TABLET (FP) PO PRN (15:11)
[2017-11-02] MEDS: CYCLOBENZAPRINE HCL 10 MG TABLET (FP) PO PRN (19:59)
[2017-11-02] MEDS: THIAMINE HCL 100 MG TABLET (FP) PO SCH (22:36)
[2017-11-02] MEDS: LIDOCAINE PATCH REMOVAL MC SCH (22:37)
[2017-11-03] MEDS ORDERED: METHADONE HCL 5 MG TABLET (FOR DETOX USE ONLY) PO ONE (06:00)
--- NOTE | 2017-11-03 09:17 | DS ---
[facility] Detox Discharge Summary Admission Date: 10/29/17 Discharge Date: 11/03/17 - History Present History: Opioid Dependence - Physical Exam Results Vital Signs: Vital Signs Temperature 99.1 F 11/03/17 06:00 Pulse Rate 77 11/03/17 06:00 Respiratory Rate 18 11/03/17 06:00 Blood Pressure 149/86 11/03/17 06:00 O2 Sat by Pulse Oximetry (%) Pertinent Admission Physical Exam Findings: withdrawal sx Vital Signs Temperature 99.1 F 11/03/17 06:00 Pulse Rate 77 11/03/17 06:00 Respiratory Rate 18 11/03/17 06:00 Blood Pressure 149/86 11/03/17 06:00 O2 Sat by Pulse Oximetry (%) Laboratory Last Values WBC 5.3 K/mm3 (4.0-10.0) 10/30/17 06:00 RBC 5.37 M/mm3 (4.00-5.60) 10/30/17 06:00 Hgb 15.5 GM/dL (11.7-16.9) 10/30/17 06:00 Hct 48.1 % (35.4-49) 10/30/17 06:00 MCV 89.5 fl (80-96) 10/30/17 06:00 MCH 28.8 pg (25.7-33.7) 10/30/17 06:00 MCHC 32.2 g/dl (32.0-35.9) 10/30/17 06:00 RDW 14.9 % (11.9-15.9) 10/30/17 06:00 Plt Count 204 K/MM3 (134-434) 10/30/17 06:00 MPV 9.7 fl (7.5-11.1) 10/30/17 06:00 Sodium 138 mmol/L (136-145) 10/30/17 06:00 Potassium 4.5 mmol/L (3.5-5.1) 10/30/17 06:00 Chloride 101 mmol/L (98-107) 10/30/17 06:00 Carbon Dioxide 28 mmol/L (21-32) 10/30/17 06:00 Anion Gap 9 (8-16) 10/30/17 06:00 BUN 10 mg/dL (7-18) D 10/30/17 06:00 Creatinine 1.1 mg/dL (0.7-1.3) 10/30/17 06:00 Creat Clearance w eGFR > 60 (>60) 10/30/17 06:00 Random Glucose 117 mg/dL (74-106) H 10/30/17 06:00 Calcium 9.6 mg/dL (8.5-10.1) 10/30/17 06:00 Total Bilirubin 1.1 mg/dL (0.2-1.0) H 10/30/17 06:00 AST 23 U/L (15-37) 10/30/17 06:00 ALT 19 U/L (12-78) 10/30/17 06:00 Alkaline Phosphatase 80 U/L (45-117) 10/30/17 06:00 Total Protein 8.1 g/dl (6.4-8.2) 10/30/17 06:00 Albumin 4.0 g/dl (3.4-5.0) 10/30/17 06:00 Urine Color Yellow 10/29/17 21:17 Urine Appearance Clear 10/29/17 21:17 Urine pH 6.0 (5.0-8.0) 10/29/17 21:17 Ur Specific [place] 1.014 (1.001-1.035) 10/29/17 21:17 Urine Protein 2+ (NEGATIVE) H 10/29/17 21:17 Urine Glucose (UA) Negative (NEGATIVE) 10/29/17 21:17 Urine Ketones Negative (NEGATIVE) 10/29/17 21:17 Urine Blood Negative (NEGATIVE) 10/29/17 21:17 Urine Nitrite Negative (NEGATIVE) 10/29/17 21:17 Urine Bilirubin Negative (NEGATIVE) 10/29/17 21:17 Urine Urobilinogen Negative mg/dL (0.2-1.0) 10/29/17 21:17 Ur Leukocyte Esterase Negative (NEGATIVE) 10/29/17 21:17 Urine WBC (Auto) <1 /hpf (3-5) 10/29/17 21:17 Urine RBC (Auto) 3 /hpf (0-3) 10/29/17 21:17 Urine Bacteria Rare /hpf (NONE SEEN) 10/29/17 21:17 Urine Mucus Rare 10/29/17 21:17 RPR Titer Nonreactive (NONREACTIVE) 10/30/17 06:00 lab noted - Treatment Hospital Course: Detox Protocol Followed, Detoxed Safely, Responded well, Discharged Condition Good, Rehab Referral Accepted Patient has Accepted a Rehab Referral to: as per counselor arranged - Medication Discharge Medications: Ambulatory Orders Amlodipine Besylate [Norvasc -] 5 mg PO DAILY 10/03/17 Hydrochlorothiazide [Hctz -] 25 mg PO DAILY 10/03/17 Lisinopril [Prinivil] 20 mg PO DAILY 10/03/17 - AMA Did Patient Leave Against Medical Advice: No
[2017-11-03] MEDS: NICOTINE 7 MG/24 HOURS TOPICAL PATCH TD SCH (10:24)
[2017-11-03] MEDS: amLODIPine BESYLATE 5 MG TABLET (FP) PO SCH (10:24)
[2017-11-03] MEDS: HYDROCHLOROTHIAZIDE 25 MG TABLET (FP) PO SCH (10:24)
[2017-11-03] MEDS: LISINOPRIL 20 MG TABLET (FP) PO SCH (10:24)
[2017-11-03] MEDS: PRENATAL VITAMINS W/ FOLIC ACID TABLET (FP) PO SCH (10:24)
[2017-11-03] MEDS: cloNIDine HCL 0.1 MG TABLET PO SCH (10:24)
[2017-11-03] MEDS: TOLNAFTATE 1% CREAM 15 GM TUBE TP SCH (10:25)
[2017-11-03] MEDS: LIDOCAINE 5% TOPICAL PATCH TP SCH (10:25)
[2017-11-03 10:58] VITALS: BP 133/98; PULSE 97; TEMP 98.6
== END 2017-11-03 12:15 | disposition home or self-care (01) | DRG 773 ==
LOC: YASAS 13:11 → Y6N 15:28
PROVIDERS: ADMIT Internal Medicine; ATTEND Internal Medicine
PROC: HZ2ZZZZ Detoxification Services for Substance Abuse Treatment (ICD-10-PCS; principal; 2017-10-29)
DX: F11.23 Opioid dependence with withdrawal (principal); F17.210 Nicotine dependence, cigarettes, uncomplicated; I10 Essential (primary) hypertension; R76.11 Nonspecific reaction to tuberculin skin test without active tuberculosis
CPT/HCPCS: 36415; 80053; 81003; 81015; 85027; 86593; 93005; 93010

== ENCOUNTER 2022-07-13 12:00 | Inpatient (IN) | payer OTHER ==
[2022-07-13] MEDS ORDERED: MAGNESIUM CITRATE 300 ML BOTTLE PO PRN (14:02)
[2022-07-13] MEDS ORDERED: MAGNESIUM HYDROX 2400MG/30ML ORAL SUSPENSION 30 ML CUP PO PRN (14:02)
[2022-07-13] MEDS ORDERED: LOPERAMIDE HCL 2 MG CAPSULE PO PRN (14:02)
[2022-07-13] MEDS ORDERED: NALOXONE HCL (KLOXXADO) 8 MG SPRAY NS PRN (14:02)
[2022-07-13] MEDS ORDERED: ACETAMINOPHEN 325 MG TABLET (FP) PO PRN (14:02)
[2022-07-13] MEDS ORDERED: P-EPHED 60MG/TRIPROLIDI 2.5MG TABLET PO PRN (14:02)
[2022-07-13] MEDS ORDERED: MAG HYDROX/AL HYDROX/SIMETH 30 ML UNIT-DOSE CUP PO PRN (14:02)
[2022-07-13] MEDS ORDERED: guaiFENesin 200 MG/10 ML 10 ML UNIT-DOSE CUPS PO PRN (14:02)
[2022-07-13] MEDS ORDERED: IBUPROFEN 400 MG TABLET (FP) PO PRN (14:02)
[2022-07-13 15:59] VITALS: BMI 23.3
[2022-07-13] MEDS: PRENATAL VITAMINS W/ FOLIC ACID TABLET (FP) PO SCH (17:37)
[2022-07-13] MEDS: hydrOXYzine PAMOATE 25 MG CAPSULE (FP) PO SCH ×2 (17:37→21:11)
[2022-07-13] MEDS: NICOTINE 7 MG/24 HOURS TOPICAL PATCH TD SCH (17:37)
[2022-07-13] MEDS: MELATONIN 5 MG TABLETS PO SCH (21:11)
[2022-07-13] MEDS: THIAMINE HCL 100 MG TABLET (FP) PO SCH (21:11)
[2022-07-14] MEDS: hydrOXYzine PAMOATE 25 MG CAPSULE (FP) PO SCH ×6 (06:01→21:17)
[2022-07-14] MEDS ORDERED: cloNIDine HCL 0.1 MG TABLET PO ONE (06:58)
[2022-07-14] MEDS ORDERED: methaDONE HCL 40 MG DISPERSABLE TABLET PO SCH (07:45)
[2022-07-14] MEDS: methaDONE 80 MG, methaDONE 20 MG PO SCH (08:56)
[2022-07-14] MEDS: HYDROCHLOROTHIAZIDE 25 MG TABLET (FP) PO SCH ×2 (08:57→10:48)
[2022-07-14] MEDS: LISINOPRIL 20 MG TABLET PO SCH ×2 (08:57→10:49)
[2022-07-14] MEDS: amLODIPine BESYLATE 10 MG TABLET (FP) PO SCH ×2 (08:57→10:48)
[2022-07-14] MEDS: NICOTINE 7 MG/24 HOURS TOPICAL PATCH TD SCH (10:49)
[2022-07-14] MEDS: PRENATAL VITAMINS W/ FOLIC ACID TABLET (FP) PO SCH (10:49)
[2022-07-14 12:01] LABS: PH,URINE 7.5 (5.0-8.0); URINE APPEARANCE CLEAR; URINE BILIRUBIN NEGATIVE (NEGATIVE); URINE COLOR YELLOW; URINE GLUCOSE (UA) TRACE (NEGATIVE); URINE KETONE NEGATIVE (NEGATIVE); URINE LEUK ESTERASE NEGATIVE (NEGATIVE); URINE NITRITE NEGATIVE (NEGATIVE); URINE PROTEIN NEGATIVE (NEGATIVE)
[2022-07-14] MEDS: MELATONIN 5 MG TABLETS PO SCH (21:17)
[2022-07-14] MEDS: THIAMINE HCL 100 MG TABLET (FP) PO SCH (21:17)
[2022-07-15] MEDS: hydrOXYzine PAMOATE 25 MG CAPSULE (FP) PO SCH ×5 (06:11→21:19)
[2022-07-15] MEDS: methaDONE 80 MG, methaDONE 20 MG PO SCH (06:12)
[2022-07-15] MEDS ORDERED: cloNIDine HCL 0.1 MG TABLET PO ONE (07:21)
[2022-07-15] MEDS: amLODIPine BESYLATE 10 MG TABLET (FP) PO SCH (10:26)
[2022-07-15] MEDS: PRENATAL VITAMINS W/ FOLIC ACID TABLET (FP) PO SCH (10:26)
[2022-07-15] MEDS: LISINOPRIL 20 MG TABLET PO SCH (10:26)
[2022-07-15] MEDS: HYDROCHLOROTHIAZIDE 25 MG TABLET (FP) PO SCH (10:27)
[2022-07-15] MEDS: NICOTINE 7 MG/24 HOURS TOPICAL PATCH TD SCH (10:27)
[2022-07-15] MEDS: MELATONIN 5 MG TABLETS PO SCH (21:19)
[2022-07-15] MEDS: THIAMINE HCL 100 MG TABLET (FP) PO SCH (21:19)
[2022-07-16] MEDS ORDERED: cloNIDine HCL 0.1 MG TABLET PO ONE (05:57)
[2022-07-16] MEDS: methaDONE 80 MG, methaDONE 20 MG PO SCH (06:54)
[2022-07-16] MEDS: hydrOXYzine PAMOATE 25 MG CAPSULE (FP) PO SCH ×5 (06:57→21:02)
[2022-07-16] MEDS ORDERED: cloNIDine HCL 0.1 MG TABLET PO PRN ×2 (09:17→09:24)
[2022-07-16] MEDS: PRENATAL VITAMINS W/ FOLIC ACID TABLET (FP) PO SCH (09:37)
[2022-07-16] MEDS: LISINOPRIL 20 MG TABLET PO SCH (09:38)
[2022-07-16] MEDS: HYDROCHLOROTHIAZIDE 25 MG TABLET (FP) PO SCH (09:38)
[2022-07-16] MEDS: amLODIPine BESYLATE 10 MG TABLET (FP) PO SCH (09:38)
[2022-07-16] MEDS: NICOTINE 7 MG/24 HOURS TOPICAL PATCH TD SCH (09:39)
[2022-07-16] MEDS: LIDOCAINE 5% TOPICAL PATCH TP SCH (13:05)
[2022-07-16] MEDS: LIDOCAINE PATCH REMOVAL MC SCH (21:01)
[2022-07-16] MEDS: MELATONIN 5 MG TABLETS PO SCH (21:02)
[2022-07-16] MEDS: THIAMINE HCL 100 MG TABLET (FP) PO SCH (21:02)
[2022-07-17] MEDS: hydrOXYzine PAMOATE 25 MG CAPSULE (FP) PO SCH ×5 (06:17→21:20)
[2022-07-17] MEDS: methaDONE 80 MG, methaDONE 20 MG PO SCH (06:18)
[2022-07-17] MEDS: amLODIPine BESYLATE 10 MG TABLET (FP) PO SCH (10:52)
[2022-07-17] MEDS: NICOTINE 7 MG/24 HOURS TOPICAL PATCH TD SCH (10:53)
[2022-07-17] MEDS: LISINOPRIL 20 MG TABLET PO SCH (10:53)
[2022-07-17] MEDS: LIDOCAINE 5% TOPICAL PATCH TP SCH (10:53)
[2022-07-17] MEDS: HYDROCHLOROTHIAZIDE 25 MG TABLET (FP) PO SCH (10:53)
[2022-07-17] MEDS: PRENATAL VITAMINS W/ FOLIC ACID TABLET (FP) PO SCH (10:53)
[2022-07-17] MEDS: LIDOCAINE PATCH REMOVAL MC SCH (21:20)
[2022-07-17] MEDS: THIAMINE HCL 100 MG TABLET (FP) PO SCH (21:20)
[2022-07-17] MEDS: MELATONIN 5 MG TABLETS PO SCH (21:20)
[2022-07-18] MEDS: methaDONE 80 MG, methaDONE 20 MG PO SCH (06:44)
[2022-07-18] MEDS: hydrOXYzine PAMOATE 25 MG CAPSULE (FP) PO SCH ×5 (06:44→21:08)
[2022-07-18] MEDS: amLODIPine BESYLATE 10 MG TABLET (FP) PO SCH (09:50)
[2022-07-18] MEDS: LIDOCAINE 5% TOPICAL PATCH TP SCH (09:50)
[2022-07-18] MEDS: PRENATAL VITAMINS W/ FOLIC ACID TABLET (FP) PO SCH (09:50)
[2022-07-18] MEDS: HYDROCHLOROTHIAZIDE 25 MG TABLET (FP) PO SCH (09:50)
[2022-07-18] MEDS: LISINOPRIL 20 MG TABLET PO SCH (09:50)
[2022-07-18] MEDS: NICOTINE 7 MG/24 HOURS TOPICAL PATCH TD SCH (09:51)
[2022-07-18] MEDS: MELATONIN 5 MG TABLETS PO SCH (21:08)
[2022-07-18] MEDS: LIDOCAINE PATCH REMOVAL MC SCH (21:08)
[2022-07-18] MEDS: THIAMINE HCL 100 MG TABLET (FP) PO SCH (21:08)
[2022-07-19] MEDS: methaDONE 80 MG, methaDONE 20 MG PO SCH (06:03)
[2022-07-19] MEDS: hydrOXYzine PAMOATE 25 MG CAPSULE (FP) PO SCH ×5 (06:04→21:29)
[2022-07-19] MEDS: PRENATAL VITAMINS W/ FOLIC ACID TABLET (FP) PO SCH (09:56)
[2022-07-19] MEDS: LISINOPRIL 20 MG TABLET PO SCH (09:57)
[2022-07-19] MEDS: LIDOCAINE 5% TOPICAL PATCH TP SCH (09:57)
[2022-07-19] MEDS: amLODIPine BESYLATE 10 MG TABLET (FP) PO SCH (09:57)
[2022-07-19] MEDS: HYDROCHLOROTHIAZIDE 25 MG TABLET (FP) PO SCH (09:57)
[2022-07-19] MEDS: NICOTINE 7 MG/24 HOURS TOPICAL PATCH TD SCH (09:58)
[2022-07-19] MEDS: NICOTINE 10 MG CARTRIDGE (INHALER) IH PRN (13:09)
[2022-07-19] MEDS: MELATONIN 5 MG TABLETS PO SCH (21:28)
[2022-07-19] MEDS: LIDOCAINE PATCH REMOVAL MC SCH (21:29)
[2022-07-19] MEDS: THIAMINE HCL 100 MG TABLET (FP) PO SCH (21:29)
[2022-07-20] MEDS: hydrOXYzine PAMOATE 25 MG CAPSULE (FP) PO SCH ×5 (06:47→21:27)
[2022-07-20] MEDS: methaDONE 80 MG, methaDONE 20 MG PO SCH (06:48)
[2022-07-20] MEDS: PRENATAL VITAMINS W/ FOLIC ACID TABLET (FP) PO SCH (09:48)
[2022-07-20] MEDS: LIDOCAINE 5% TOPICAL PATCH TP SCH (09:49)
[2022-07-20] MEDS: amLODIPine BESYLATE 10 MG TABLET (FP) PO SCH (09:49)
[2022-07-20] MEDS: HYDROCHLOROTHIAZIDE 25 MG TABLET (FP) PO SCH (09:49)
[2022-07-20] MEDS: NICOTINE 7 MG/24 HOURS TOPICAL PATCH TD SCH (09:49)
[2022-07-20] MEDS: LISINOPRIL 20 MG TABLET PO SCH (09:49)
[2022-07-20 12:27] LABS: HEMATOCRIT 42.9 % (35.4-49); HEMOGLOBIN 14.1 GM/dL (11.7-16.9); MCH 30.1 pg (25.7-33.7); MEAN CELL VOLUME 91.3 fl (80-96); MEAN PLT VOLUME 7.7 fl (7.5-11.1); PLATELET COUNT 320 10^3/uL (134-434); RBC 4.69 M/mm3 (4.00-5.60); WHITE BLOOD COUNT 6.3 K/mm3 (4.0-10.0)
[2022-07-20 12:59] LABS: ALBUMIN 3.5 g/dl (3.4-5.0); BLOOD UREA NITROGEN 33.6 mg/dL (7-18); CALCIUM 9.4 mg/dL (8.5-10.1)
[2022-07-20 13:25] LABS: CREATININE 1.9 mg/dL (0.55-1.3); TOT PROT 8.2 g/dl (6.4-8.2)
[2022-07-20] MEDS: MELATONIN 5 MG TABLETS PO SCH (21:26)
[2022-07-20] MEDS: THIAMINE HCL 100 MG TABLET (FP) PO SCH (21:26)
[2022-07-20] MEDS: LIDOCAINE PATCH REMOVAL MC SCH (21:28)
[2022-07-21] MEDS ORDERED: methaDONE HCL 10 MG TABLET PO SCH (06:00)
[2022-07-21] MEDS: hydrOXYzine PAMOATE 25 MG CAPSULE (FP) PO SCH ×5 (06:22→21:14)
[2022-07-21] MEDS: methaDONE 80 MG, methaDONE 20 MG PO SCH (06:22)
[2022-07-21] MEDS: PRENATAL VITAMINS W/ FOLIC ACID TABLET (FP) PO SCH (10:20)
[2022-07-21] MEDS: LISINOPRIL 20 MG TABLET PO SCH (10:20)
[2022-07-21] MEDS: NICOTINE 7 MG/24 HOURS TOPICAL PATCH TD SCH (10:20)
[2022-07-21] MEDS: NICOTINE 10 MG CARTRIDGE (INHALER) IH PRN (10:20)
[2022-07-21] MEDS: LIDOCAINE 5% TOPICAL PATCH TP SCH (10:20)
[2022-07-21] MEDS: HYDROCHLOROTHIAZIDE 25 MG TABLET (FP) PO SCH (10:20)
[2022-07-21] MEDS: amLODIPine BESYLATE 10 MG TABLET (FP) PO SCH (10:21)
[2022-07-21] MEDS: THIAMINE HCL 100 MG TABLET (FP) PO SCH (21:14)
[2022-07-21] MEDS: MELATONIN 5 MG TABLETS PO SCH (21:15)
[2022-07-21] MEDS: LIDOCAINE PATCH REMOVAL MC SCH (21:15)
[2022-07-22] MEDS: methaDONE 80 MG, methaDONE 20 MG PO SCH (06:27)
[2022-07-22] MEDS: hydrOXYzine PAMOATE 25 MG CAPSULE (FP) PO SCH ×5 (06:28→21:10)
[2022-07-22] MEDS: LIDOCAINE 5% TOPICAL PATCH TP SCH (10:09)
[2022-07-22] MEDS: HYDROCHLOROTHIAZIDE 25 MG TABLET (FP) PO SCH (10:09)
[2022-07-22] MEDS: PRENATAL VITAMINS W/ FOLIC ACID TABLET (FP) PO SCH (10:09)
[2022-07-22] MEDS: LISINOPRIL 20 MG TABLET PO SCH (10:09)
[2022-07-22] MEDS: NICOTINE 7 MG/24 HOURS TOPICAL PATCH TD SCH (10:10)
[2022-07-22] MEDS: amLODIPine BESYLATE 10 MG TABLET (FP) PO SCH (10:10)
[2022-07-22] MEDS: THIAMINE HCL 100 MG TABLET (FP) PO SCH (21:10)
[2022-07-22] MEDS: LIDOCAINE PATCH REMOVAL MC SCH (21:10)
[2022-07-22] MEDS: MELATONIN 5 MG TABLETS PO SCH (21:10)
[2022-07-23] MEDS: methaDONE 80 MG, methaDONE 20 MG PO SCH (06:42)
[2022-07-23] MEDS: hydrOXYzine PAMOATE 25 MG CAPSULE (FP) PO SCH ×5 (06:42→21:08)
[2022-07-23 06:52] VITALS: RESP 18
[2022-07-23] MEDS: amLODIPine BESYLATE 10 MG TABLET (FP) PO SCH (10:07)
[2022-07-23] MEDS: LISINOPRIL 20 MG TABLET PO SCH (10:07)
[2022-07-23] MEDS: NICOTINE 10 MG CARTRIDGE (INHALER) IH PRN (10:07)
[2022-07-23] MEDS: HYDROCHLOROTHIAZIDE 25 MG TABLET (FP) PO SCH (10:07)
[2022-07-23] MEDS: LIDOCAINE 5% TOPICAL PATCH TP SCH (10:07)
[2022-07-23] MEDS: PRENATAL VITAMINS W/ FOLIC ACID TABLET (FP) PO SCH (10:07)
[2022-07-23] MEDS: NICOTINE 7 MG/24 HOURS TOPICAL PATCH TD SCH (10:43)
[2022-07-23] MEDS: MELATONIN 5 MG TABLETS PO SCH (21:08)
[2022-07-23] MEDS: LIDOCAINE PATCH REMOVAL MC SCH (21:08)
[2022-07-23] MEDS: THIAMINE HCL 100 MG TABLET (FP) PO SCH (21:08)
[2022-07-24] MEDS: hydrOXYzine PAMOATE 25 MG CAPSULE (FP) PO SCH ×2 (06:20→09:42)
[2022-07-24] MEDS: methaDONE 80 MG, methaDONE 20 MG PO SCH (06:20)
[2022-07-24 06:48] VITALS: BP 153/111; PULSE 93; TEMP 97.3
[2022-07-24] MEDS: LISINOPRIL 20 MG TABLET PO SCH (09:42)
[2022-07-24] MEDS: PRENATAL VITAMINS W/ FOLIC ACID TABLET (FP) PO SCH (09:42)
[2022-07-24] MEDS: amLODIPine BESYLATE 10 MG TABLET (FP) PO SCH (09:42)
[2022-07-24] MEDS: HYDROCHLOROTHIAZIDE 25 MG TABLET (FP) PO SCH (09:42)
[2022-07-24] MEDS: NICOTINE 7 MG/24 HOURS TOPICAL PATCH TD SCH (09:43)
[2022-07-24] MEDS: LIDOCAINE 5% TOPICAL PATCH TP SCH (09:43)
== END 2022-07-24 10:30 | disposition home or self-care (01) | DRG 772 ==
LOC: YASAS 12:00 → Y3W 16:46
PROVIDERS: ADMIT Allergy & Immunology; ATTEND Psychiatry & Neurology Pain Medicine
PROC: HZ42ZZZ Group Counseling for Substance Abuse Treatment, Cognitive-Behavioral (ICD-10-PCS; principal; 2022-07-13)
DX: F11.20 Opioid dependence, uncomplicated (principal); F10.20 Alcohol dependence, uncomplicated; F14.20 Cocaine dependence, uncomplicated; F12.20 Cannabis dependence, uncomplicated; F17.210 Nicotine dependence, cigarettes, uncomplicated; F19.24 Other psychoactive substance dependence with psychoactive substance-induced mood disorder; I25.10 Atherosclerotic heart disease of native coronary artery without angina pectoris; I11.0 Hypertensive heart disease with heart failure; I50.9 Heart failure, unspecified; G47.00 Insomnia, unspecified; M51.36 Other intervertebral disc degeneration, lumbar region; M54.50 Low back pain, unspecified; G89.29 Other chronic pain; R76.11 Nonspecific reaction to tuberculin skin test without active tuberculosis; Z95.2 Presence of prosthetic heart valve; Z86.59 Personal history of other mental and behavioral disorders
CPT/HCPCS: 36415; 71046-TC-FY; 80053; 81003; 85027; 86780; C9803-CS; U0003; U0005

== ENCOUNTER 2022-10-12 11:31 | Inpatient (IN) | payer OTHER ==
[2022-10-12 12:16] VITALS: BMI 24.4
[2022-10-12] MEDS ORDERED: ACETAMINOPHEN 325 MG TABLET (FP) PO PRN (12:28)
[2022-10-12] MEDS ORDERED: hydrOXYzine PAMOATE 25 MG CAPSULE (FP) PO PRN (12:28)
[2022-10-12] MEDS ORDERED: MAG HYDROX/AL HYDROX/SIMETH 30 ML UNIT-DOSE CUP PO PRN (12:28)
[2022-10-12] MEDS ORDERED: IBUPROFEN 400 MG TABLET (FP) PO PRN (12:28)
[2022-10-12] MEDS ORDERED: BENZOCAINE/MENTHOL (CHLORASEPTIC ) LOZENGE MM PRN (12:28)
[2022-10-12] MEDS ORDERED: LOPERAMIDE HCL 2 MG CAPSULE PO PRN (12:28)
[2022-10-12] MEDS ORDERED: P-EPHED 60MG/TRIPROLIDI 2.5MG TABLET PO PRN (12:28)
[2022-10-12] MEDS ORDERED: NALOXONE HCL (KLOXXADO) 8 MG SPRAY NS PRN (12:28)
[2022-10-12] MEDS ORDERED: guaiFENesin 200 MG/10 ML 10 ML UNIT-DOSE CUPS PO PRN (12:28)
[2022-10-12] MEDS ORDERED: MAGNESIUM HYDROX 2400MG/30ML ORAL SUSPENSION 30 ML CUP PO PRN (12:28)
[2022-10-12] MEDS ORDERED: POLYETHYLENE GLYCOL (HEALTHYLAX) 3350 17 GM PACKET PO PRN (12:28)
[2022-10-12] MEDS: NICOTINE 7 MG/24 HOURS TOPICAL PATCH TD SCH (12:30)
[2022-10-12] MEDS: PRENATAL VITAMINS W/ FOLIC ACID TABLET (FP) PO SCH (12:30)
[2022-10-12 19:15] LABS: HEMATOCRIT 41.5 % (35.4-49); HEMOGLOBIN 13.3 GM/dL (11.7-16.9); MCH 28.2 pg (25.7-33.7); MCHC 32.1 g/dl (32.0-35.9); MEAN CELL VOLUME 87.9 fl (80-96); PLATELET COUNT 204 10^3/uL (134-434); RBC 4.73 M/mm3 (4.00-5.60); RDW 16.7 % (11.9-15.9); WHITE BLOOD COUNT 5.7 K/mm3 (4.0-10.0)
[2022-10-12 19:28] LABS: CREATININE 1.8 mg/dL (0.55-1.3)
[2022-10-12 19:29] LABS: CALCIUM 8.8 mg/dL (8.5-10.1)
[2022-10-12 19:31] LABS: ALBUMIN 3.5 g/dl (3.4-5.0)
[2022-10-12 19:32] LABS: TOT PROT 7.6 g/dl (6.4-8.2)
[2022-10-12 19:48] LABS: SYPHILIS W/ RPR CONF NON-REACTIVE (NONREACTIVE)
[2022-10-12] MEDS: THIAMINE HCL 100 MG TABLET (FP) PO SCH (21:21)
[2022-10-12] MEDS: MELATONIN 5 MG TABLETS PO SCH (21:21)
[2022-10-12] MEDS ORDERED: SUVOREXANT 10 MG TABLET PO PRN (22:00)
[2022-10-13] MEDS ORDERED: cloNIDine HCL 0.1 MG TABLET PO ONE (05:57)
[2022-10-13] MEDS ORDERED: methaDONE HCL 40 MG DISPERSABLE TABLET PO SCH (08:15)
[2022-10-13] MEDS: PRENATAL VITAMINS W/ FOLIC ACID TABLET (FP) PO SCH (09:04)
[2022-10-13] MEDS: NICOTINE 7 MG/24 HOURS TOPICAL PATCH TD SCH (09:04)
[2022-10-13] MEDS: HYDROCHLOROTHIAZIDE 25 MG TABLET (FP) PO SCH (09:04)
[2022-10-13] MEDS: LISINOPRIL 20 MG TABLET PO SCH (09:04)
[2022-10-13] MEDS ORDERED: amLODIPine BESYLATE 10 MG TABLET (FP) PO SCH (10:00)
[2022-10-13] MEDS ORDERED: ACETAMINOPHEN 500 MG TABLET (FP) PO PRN (11:29)
[2022-10-13] MEDS ORDERED: METHADONE 15 MG OD SCH (18:00)
[2022-10-13] MEDS ORDERED: methaDONE HCL 10 MG TABLET PO SCH (18:00)
[2022-10-13] MEDS: LACTULOSE 20 GM/30 ML UDC (FOR ORAL USE ONLY) PO SCH (21:49)
[2022-10-13] MEDS: MELATONIN 5 MG TABLETS PO SCH (21:50)
[2022-10-13] MEDS: THIAMINE HCL 100 MG TABLET (FP) PO SCH (21:50)
[2022-10-14] MEDS: amLODIPine BESYLATE 10 MG TABLET (FP) PO SCH (06:58)
[2022-10-14] MEDS: NICOTINE 7 MG/24 HOURS TOPICAL PATCH TD SCH (09:31)
[2022-10-14] MEDS: HYDROCHLOROTHIAZIDE 25 MG TABLET (FP) PO SCH (09:31)
[2022-10-14] MEDS: LACTULOSE 20 GM/30 ML UDC (FOR ORAL USE ONLY) PO SCH ×2 (09:31→21:51)
[2022-10-14] MEDS: LISINOPRIL 20 MG TABLET PO SCH (09:31)
[2022-10-14] MEDS: PRENATAL VITAMINS W/ FOLIC ACID TABLET (FP) PO SCH (09:31)
[2022-10-14] MEDS: MELATONIN 5 MG TABLETS PO SCH (21:50)
[2022-10-14] MEDS: THIAMINE HCL 100 MG TABLET (FP) PO SCH (21:51)
[2022-10-14] MEDS: NICOTINE 10 MG CARTRIDGE (INHALER) IH PRN (21:53)
[2022-10-15] MEDS: amLODIPine BESYLATE 10 MG TABLET (FP) PO SCH (05:49)
[2022-10-15 07:02] LABS: URINE APPEARANCE CLEAR; URINE BILIRUBIN NEGATIVE (NEGATIVE); URINE COLOR YELLOW; URINE GLUCOSE (UA) NEGATIVE (NEGATIVE); URINE KETONE NEGATIVE (NEGATIVE); URINE LEUK ESTERASE NEGATIVE (NEGATIVE); URINE NITRITE NEGATIVE (NEGATIVE); URINE PROTEIN NEGATIVE (NEGATIVE)
[2022-10-15] MEDS: PRENATAL VITAMINS W/ FOLIC ACID TABLET (FP) PO SCH (09:47)
[2022-10-15] MEDS: LACTULOSE 20 GM/30 ML UDC (FOR ORAL USE ONLY) PO SCH ×2 (09:47→21:22)
[2022-10-15] MEDS: HYDROCHLOROTHIAZIDE 25 MG TABLET (FP) PO SCH (09:47)
[2022-10-15] MEDS: LISINOPRIL 20 MG TABLET PO SCH (09:47)
[2022-10-15] MEDS: NICOTINE 10 MG CARTRIDGE (INHALER) IH PRN (09:47)
[2022-10-15] MEDS: NICOTINE 7 MG/24 HOURS TOPICAL PATCH TD SCH (09:47)
[2022-10-15] MEDS ORDERED: HYDROCHLOROTHIAZIDE 12.5 MG CAPSULE (FP) PO SCH (16:45)
[2022-10-15] MEDS ORDERED: HYDROCHLOROTHIAZIDE 12.5 MG CAPSULE (FP) PO ONE (17:00)
[2022-10-15] MEDS ORDERED: amLODIPine BESYLATE 10 MG TABLET (FP) PO SCH (18:00)
[2022-10-15] MEDS: SUVOREXANT 10 MG TABLET PO PRN (21:22)
[2022-10-15] MEDS: THIAMINE HCL 100 MG TABLET (FP) PO SCH (21:22)
[2022-10-15] MEDS: MELATONIN 5 MG TABLETS PO SCH (21:22)
[2022-10-16] MEDS: HYDROCHLOROTHIAZIDE 25 MG TABLET (FP) PO SCH ×2 (05:53→09:33)
[2022-10-16] MEDS: amLODIPine BESYLATE 10 MG TABLET (FP) PO SCH ×2 (05:53→09:33)
[2022-10-16] MEDS: PRENATAL VITAMINS W/ FOLIC ACID TABLET (FP) PO SCH (09:32)
[2022-10-16] MEDS: LACTULOSE 20 GM/30 ML UDC (FOR ORAL USE ONLY) PO SCH ×2 (09:32→21:26)
[2022-10-16] MEDS: LISINOPRIL 20 MG TABLET PO SCH (09:33)
[2022-10-16] MEDS: NICOTINE 7 MG/24 HOURS TOPICAL PATCH TD SCH (09:33)
[2022-10-16] MEDS: HYDROCHLOROTHIAZIDE 12.5 MG CAPSULE (FP) PO SCH (13:26)
[2022-10-16 14:51] LABS: ALBUMIN 3.2 g/dl (3.4-5.0); BLOOD UREA NITROGEN 22.6 mg/dL (7-18); CALCIUM 8.7 mg/dL (8.5-10.1); MAGNESIUM 2.3 mg/dL (1.8-2.4)
[2022-10-16 14:54] LABS: CREATININE 2.1 mg/dL (0.55-1.3); PHOSPHOROUS 3.3 mg/dL (2.5-4.9)
[2022-10-16 14:56] LABS: BILIRUBIN,TOTAL 0.6 mg/dL (0.2-1); TOT PROT 7.5 g/dl (6.4-8.2)
[2022-10-16] MEDS: MELATONIN 5 MG TABLETS PO SCH (21:26)
[2022-10-16] MEDS: THIAMINE HCL 100 MG TABLET (FP) PO SCH (21:26)
[2022-10-16] MEDS: SUVOREXANT 10 MG TABLET PO PRN (21:27)
[2022-10-17 06:20] VITALS: RESP 18
[2022-10-17] MEDS: amLODIPine BESYLATE 10 MG TABLET (FP) PO SCH (09:31)
[2022-10-17] MEDS: LACTULOSE 20 GM/30 ML UDC (FOR ORAL USE ONLY) PO SCH ×2 (09:31→21:01)
[2022-10-17] MEDS: NICOTINE 10 MG CARTRIDGE (INHALER) IH PRN (09:31)
[2022-10-17] MEDS: PRENATAL VITAMINS W/ FOLIC ACID TABLET (FP) PO SCH (09:31)
[2022-10-17] MEDS: HYDROCHLOROTHIAZIDE 25 MG TABLET (FP) PO SCH (09:31)
[2022-10-17] MEDS: LISINOPRIL 20 MG TABLET PO SCH (09:31)
[2022-10-17] MEDS: NICOTINE 7 MG/24 HOURS TOPICAL PATCH TD SCH (09:32)
[2022-10-17] MEDS: HYDROCHLOROTHIAZIDE 12.5 MG CAPSULE (FP) PO SCH (13:13)
[2022-10-17] MEDS: MELATONIN 5 MG TABLETS PO SCH (21:00)
[2022-10-17] MEDS: THIAMINE HCL 100 MG TABLET (FP) PO SCH (21:01)
[2022-10-17] MEDS: SUVOREXANT 10 MG TABLET PO PRN (21:02)
[2022-10-17] MEDS ORDERED: SUVOREXANT 10 MG TABLET PO PRN (22:00)
[2022-10-18] MEDS: amLODIPine BESYLATE 10 MG TABLET (FP) PO SCH (09:33)
[2022-10-18] MEDS: NICOTINE 7 MG/24 HOURS TOPICAL PATCH TD SCH (09:33)
[2022-10-18] MEDS: LISINOPRIL 20 MG TABLET PO SCH (09:33)
[2022-10-18] MEDS: PRENATAL VITAMINS W/ FOLIC ACID TABLET (FP) PO SCH (09:33)
[2022-10-18] MEDS: HYDROCHLOROTHIAZIDE 25 MG TABLET (FP) PO SCH (09:33)
[2022-10-18] MEDS: LACTULOSE 20 GM/30 ML UDC (FOR ORAL USE ONLY) PO SCH (09:33)
[2022-10-18] MEDS: HYDROCHLOROTHIAZIDE 12.5 MG CAPSULE (FP) PO SCH (12:52)
[2022-10-18] MEDS: THIAMINE HCL 100 MG TABLET (FP) PO SCH (21:12)
[2022-10-18] MEDS: MELATONIN 5 MG TABLETS PO SCH (21:12)
[2022-10-19 07:02] VITALS: BP 122/89; PULSE 89; TEMP 98.2
[2022-10-19] MEDS: HYDROCHLOROTHIAZIDE 25 MG TABLET (FP) PO SCH (08:48)
[2022-10-19] MEDS: amLODIPine BESYLATE 10 MG TABLET (FP) PO SCH (08:48)
[2022-10-19] MEDS: PRENATAL VITAMINS W/ FOLIC ACID TABLET (FP) PO SCH (08:48)
[2022-10-19] MEDS: LISINOPRIL 20 MG TABLET PO SCH (08:49)
[2022-10-19] MEDS: NICOTINE 7 MG/24 HOURS TOPICAL PATCH TD SCH (08:56)
== END 2022-10-19 08:57 | disposition home or self-care (01) | DRG 772 ==
LOC: YASAS 11:31 → Y3W 14:15
PROVIDERS: ADMIT Allergy & Immunology; ATTEND Psychiatry & Neurology Pain Medicine
PROC: HZ42ZZZ Group Counseling for Substance Abuse Treatment, Cognitive-Behavioral (ICD-10-PCS; principal; 2022-10-12)
DX: F11.20 Opioid dependence, uncomplicated (principal); F10.20 Alcohol dependence, uncomplicated; F13.20 Sedative, hypnotic or anxiolytic dependence, uncomplicated; F14.20 Cocaine dependence, uncomplicated; F17.210 Nicotine dependence, cigarettes, uncomplicated; F19.282 Other psychoactive substance dependence with psychoactive substance-induced sleep disorder; F19.24 Other psychoactive substance dependence with psychoactive substance-induced mood disorder; F32.A Depression, unspecified; I11.0 Hypertensive heart disease with heart failure; I50.9 Heart failure, unspecified; N18.9 Chronic kidney disease, unspecified; R73.9 Hyperglycemia, unspecified; M51.36 Other intervertebral disc degeneration, lumbar region; M54.50 Low back pain, unspecified; G89.29 Other chronic pain; Z95.4 Presence of other heart-valve replacement
CPT/HCPCS: 36415; 80053; 81003; 82140; 83735; 84100; 85027; 86780; 86803; 87522; 93005; 93010; C9803-CS; U0003; U0005

== ENCOUNTER 2022-10-17 11:59 | Emergency (ER) | payer OTHER ==
[2022-10-17 12:42] VITALS: BP 119/82; PULSE 93; RESP 20; TEMP 98.1; BMI 25.0
[2022-10-17 14:24] LABS: HEMOGLOBIN 12.4 GM/dL (11.7-16.9); MCH 27.7 pg (25.7-33.7); MCHC 31.9 g/dl (32.0-35.9); MEAN CELL VOLUME 86.9 fl (80-96); MEAN PLT VOLUME 7.6 fl (7.5-11.1); PLATELET COUNT 272 10^3/uL (134-434); RBC 4.49 M/mm3 (4.00-5.60); RDW 16.4 % (11.9-15.9); WHITE BLOOD COUNT 6.4 K/mm3 (4.0-10.0)
[2022-10-17] MEDS ORDERED: ACETAMINOPHEN 500 MG TABLET (FP) PO ONE (14:30)
[2022-10-17 14:43] LABS: CALCIUM 8.9 mg/dL (8.5-10.1)
[2022-10-17 14:45] LABS: ALBUMIN 3.1 g/dl (3.4-5.0); BLOOD UREA NITROGEN 24.5 mg/dL (7-18)
[2022-10-17 14:49] LABS: BILIRUBIN,TOTAL 0.4 mg/dL (0.2-1); TOT PROT 7.4 g/dl (6.4-8.2)
[2022-10-17] MEDS ORDERED: ACETAMINOPHEN 325 MG TABLET (FP) ONE (15:04)
== END 2022-10-17 16:12 | disposition home or self-care (01) ==
LOC: JER 11:59
DX: N18.9 Chronic kidney disease, unspecified (principal)
CPT/HCPCS: 36415; 80053; 85027; 99283-25